=== PATIENT | female | born 1935 | race Hispanic/Latino ===

== ENCOUNTER 2017-02-09 11:14 | Outpatient (CLI) | payer MEDICARE ==
--- NOTE | 2017-02-09 12:04 | RAD ---
RIGHT SHOULDER 3 VIEWS: HISTORY: M25.511. COMPARISON: None. FINDINGS: There is mild narrowing of the subacromial space. Ossification of the superior and inferior acromioc lavicular ligaments with osseous hypertrophy. Small humeral osteophytes. Ribs are unremarkable. IMPRESSION: 1. Mild to moderate degenerative changes of the glenohumeral joint as well as moderate degenerative change of the acromioclavicular joint. 2. Mild narrowing of subacromial space can be seen with rotator cuff arthropathy. POS: [facility]
--- NOTE | 2017-02-09 12:05 | RAD ---
LEFT SHOULDER 3 VIEWS: HISTORY: Shoulder pain. FINDINGS: There are arthritic changes of the AC and glenohumeral joint space. The bones appear slightly demine ralized. The bones appear slightly demineralized. There is no fracture. IMPRESSION: Mild arthritic changes of the left shoulder. POS: [facility]
== END 2017-02-09 11:15 | disposition home or self-care (01) ==
LOC: SCSRAD 11:14
PROVIDERS: ATTEND Nurse Practitioner Family
DX: M25.511 Pain in right shoulder (principal); M25.512 Pain in left shoulder; M19.012 Primary osteoarthritis, left shoulder; M19.011 Primary osteoarthritis, right shoulder

== ENCOUNTER 2017-09-04 10:35 | Outpatient (CLI) | payer MEDICARE ==
--- NOTE | 2017-09-04 12:12 | RAD ---
THREE VIEWS OF THE LEFT ANKLE: COMPARISON: 08/10/16. HISTORY: Fall 10 days ago with left ankle pain. FINDINGS: Three views left ankle show no evidence of acute fracture or dislocation. Mild diffuse soft tissue s welling is seen. Degenerative changes are seen in the mid foot. IMPRESSION: Degenerative changes in the mid foot without acute osseous abnormality. POS: [facility]
== END 2017-09-04 10:36 | disposition home or self-care (01) ==
LOC: SCSRAD 10:35
PROVIDERS: ATTEND Nurse Practitioner Family
DX: M25.572 Pain in left ankle and joints of left foot (principal); M19.072 Primary osteoarthritis, left ankle and foot

== ENCOUNTER 2018-01-08 15:21 | Outpatient (CLI) | payer MEDICARE ==
--- NOTE | 2018-01-08 16:21 | RAD ---
CALCANEUS TWO VIEWS: History: Pain x 1 week. Comparison: None. FINDINGS: Mild hypertrophy of the calcaneus at the plantar aponeurosis insertion site. Trabeculation is maintai howard. No fracture. IMPRESSION: Mild hypertrophy of the calcaneus at the plantar aponeurosis insertion site. Correlate for plantar fa scitis. POS: [facility]
== END 2018-01-08 15:22 | disposition home or self-care (01) ==
LOC: BICRAD 15:21
PROVIDERS: ATTEND Podiatrist
DX: M79.671 Pain in right foot (principal); M72.2 Plantar fascial fibromatosis
CPT/HCPCS: 36415; 84550

== ENCOUNTER 2018-01-26 10:18 | Outpatient (CLI) | payer MEDICARE ==
--- NOTE | 2018-01-26 12:44 | BD ---
DEXA BONE DENSITY SCAN: DATE: 01/26/2018. COMPARISON: None. HISTORY: Postmenopausal female undergoing screening for osteoporosis. FINDINGS: Lumbar Spine: BMD (g/cm2) L1 1.204 T-Score: 1.9 L2 1.297 T-Score: 2.4 L3 1.361 T-Score: 2.5 L4 1.372 T-Score: 2.8 L1-L4 1.312 T-Score: 2.4 Femoral Neck: 0.838 T-Score: -0.1 Total Femur: 1.008 T-Score: 0.5 FRAX-WHO fracture risk assessment tool is not reported as T-scores are at or above -1.0. Impression: Normal bone mineral density exam. POS: C
== END 2018-01-26 10:19 | disposition home or self-care (01) ==
LOC: BICMAMMO 10:18
PROVIDERS: ATTEND Nurse Practitioner Family
DX: Z13.820 Encounter for screening for osteoporosis (principal); E55.9 Vitamin D deficiency, unspecified
CPT/HCPCS: 77080

== ENCOUNTER 2018-03-30 09:54 | Emergency (ER) | payer MEDICARE ==
--- NOTE | 2018-03-30 10:31 | CT ---
CT BRAIN: Date: 03/30/18 PROVIDED CLINICAL HISTORY: Headache. FINDINGS: No comparisons. The ventricular system appears normal in size and morphology. There is no evidence for intracranial h emorrhage or mass effect. Calcifications are noted involving the basal ganglia and cerebellum bilater ally, compatible with a systemic process. The extracranial soft tissues and osseous structures demons trate an unremarkable CT appearance. IMPRESSION: No evidence for intracranial hemorrhage or mass effect. POS: [facility]
== END 2018-03-30 10:35 | disposition home or self-care (01) ==
LOC: SCSER 09:54
DX: S00.03XA Contusion of scalp, initial encounter (principal); M19.90 Unspecified osteoarthritis, unspecified site; E11.9 Type 2 diabetes mellitus without complications; I10 Essential (primary) hypertension; Z79.84 Long term (current) use of oral hypoglycemic drugs; Z79.899 Other long term (current) drug therapy; W01.0XXA Fall on same level from slipping, tripping and stumbling without subsequent striking against object, initial encounter
CPT/HCPCS: 70450

== ENCOUNTER 2018-08-28 09:08 | Outpatient (CLI) | payer MEDICARE ==
--- NOTE | 2018-08-28 09:53 | RAD ---
EXAM: XR Cerv Sp Ap Lat STANDARD DATE: 08/28/2018 12:00 AM INDICATION: Neck pain COMPARISON: None. FINDING: There is reversal normal cervical lordosis. There is advanced multilevel facet and disc deg enerative disease. There is slight anterior translation of C7 on T1 which is likely degenerative. No acute fracture is evident. Lateral masses are symmetric. Lung apices are clear. Prevertebral soft tissues are normal appearing. IMPRESSION:Severe spondylosis of the cervical spine.
== END 2018-08-28 09:09 | disposition home or self-care (01) ==
LOC: BICRAD 09:08
PROVIDERS: ATTEND Nurse Practitioner Family
DX: M47.812 Spondylosis without myelopathy or radiculopathy, cervical region (principal); M54.2 Cervicalgia
CPT/HCPCS: 72040

== ENCOUNTER 2018-09-11 10:33 | Outpatient (CLI) | payer MEDICARE ==
--- NOTE | 2018-09-11 13:20 | MMO ---
Bilateral MAMMO Bilat Screen [facility]. CLINICAL HISTORY: Patient is 82 years old and is seen for screening. The patient has no family history of breast cancer. The patient has no personal history of cancer. VIEWS: The views performed were: bilateral craniocaudal with tomosynthesis and bilateral mediolateral oblique with tomosynthesis. FILMS COMPARED: The present examination has been compared to prior imaging studies performed at [facility] on 12/19/2014, 01/27/2015 and 10/11/2016. MAMMOGRAM FINDINGS: There are scattered fibroglandular densities. Finding 1: There are stable benign appearing calcifications seen in both breasts. Finding 2: The focal asymmetry in the outer left breast only seen on the CC view is less conspicuous on the current study compared to exam on 10/11/16 and is similar to study in 2014. There are no suspicious masses, suspicious calcifications, or new areas of architectural distortion. IMPRESSION: THERE IS NO MAMMOGRAPHIC EVIDENCE OF MALIGNANCY. A ROUTINE FOLLOW-UP MAMMOGRAM IN 1 YEAR IS RECOMMENDED. THE RESULTS OF THIS EXAM WERE SENT TO THE PATIENT. ACR BI-RADS Category 2 - Benign finding MAMMOGRAPHY NOTE: 1. A negative mammogram report should not delay a biopsy if a dominant of clinically suspicious mass is present. 2. Approximately 10% to 15% of breast cancers are not detected by mammography. 3. Adenosis and dense breasts may obscure an underlying neoplasm. Reported by: CORETTA ZULETA MD Electonically Signed: [id number]
== END 2018-09-11 10:34 | disposition home or self-care (01) ==
LOC: BICMAMMO 10:33
PROVIDERS: ATTEND Nurse Practitioner Family
DX: Z12.31 Encounter for screening mammogram for malignant neoplasm of breast (principal)
CPT/HCPCS: 77063; 77067

== ENCOUNTER 2018-11-11 14:38 | Inpatient (IN) | payer MEDICARE ==
[2018-11-11 15:06] LABS: #Monocytes 0.7 thou/uL (0.11-0.59); #Neutrophils 9.1 thou/uL (1.40-6.50); %Basophils 0.3 % (0.0-1.0); %Eosinophils 0.2 % (0.0-10.0); %Lymphocytes 9.2 % (21.0-51.0); %Monocytes 6.5 % (0.0-10.0); %Neutrophils 83.8 % (42.0-75.0); Hemoglobin 15.6 g/dL (12.0-16.0); Mean Corpuscular HGB CONC 34.5 g/dL (32.0-36.0); Mean Corpuscular Hemoglobin 32.6 pg (27.0-31.0); Mean Corpuscular Volume 94.5 fL (78.0-98.0); Mean Platelet Volume 7.6 fL (7.4-10.4); Platelet Count 287 thou/uL (130-400); RBC Distribution Width 12.1 % (11.5-14.5); White Blood Cell (WBC) Count 10.8 thou/uL (4.8-10.8)
--- NOTE | 2018-11-11 15:08 | RAD ---
EXAM: Portable chest PROVIDED CLINICAL HISTORY: Chest pain COMPARISON: 08/09/2016 FINDINGS: Cardiac and mediastinal silhouette are unchanged in appearance. No focal consolidation, pleural fluid or pneumothorax evident. IMPRESSION: No evidence for an acute cardiopulmonary process.
[2018-11-11 15:30] LABS: ALT (SGPT) 17 U/L (8-55); AST (SGOT) 43 U/L (5-34); Albumin 3.8 g/dL (3.4-4.8); Alkaline Phosphatase 62 U/L (40-150); Anion Gap 12 mmol/L (10-20); BUN (Urea Nitrogen) 20 mg/dL (9.8-20.1); Bilirubin, Total 0.9 mg/dL (0.2-1.2); CK (CPK) 1068 U/L (29-168); Calc. Creatinine Clearance 0 mL/min (70-130); Calcium 9.5 mg/dL (7.8-10.44); Carbon Dioxide 25 mmol/L (23-31); Chloride 105 mmol/L (98-107); Estimated GFR-MDRD 70; Globulin 2.3 g/dL (2.4-3.5); Glucose 123 mg/dL (83-110); Lipase 6 U/L (8-78); Potassium 3.5 mmol/L (3.5-5.1); Protein, Total 6.1 g/dL (6.0-8.3); Sodium 138 mmol/L (136-145)
[2018-11-11 15:57] LABS: CKMB 31.4 ng/mL (0-6.6)
[2018-11-11] MEDS ORDERED: Nitroglycerin 0.4 MG TAB (25 Tab Bottle) SL PRN (16:28)
[2018-11-11] MEDS ORDERED: HumaLOG 300 UNITS/3 ML VIAL SC PRN (16:30)
[2018-11-11] MEDS ORDERED: Dextrose 50% Abboject 50 ML SYRINGE SLOW IVP PRN (16:30)
[2018-11-11] MEDS ORDERED: Dextrose 5% in Water 1,000 ML IV PRN (16:30)
[2018-11-11] MEDS ORDERED: Enoxaparin Sodium 60 MG/0.6 ML SYRINGE ONE (17:12)
[2018-11-11 17:26] LABS: Troponin I 3.898 ng/mL (< 0.028)
--- NOTE | 2018-11-11 17:50 | HP ---
CHIEF COMPLAINT: Chest pain. HISTORY OF PRESENT ILLNESS: This patient is an 82-year-old female with a history of hypertension and diabetes, who presented to the emergency department. The patient reports that last night she was in her usual state of health when she was awakened by severe leg cramps. She tried to get out of bed, but felt too weak in her legs and felt lightheaded. She called a friend, who can help her get her back to bed. She slept the rest of the night. This morning, she continued to feel generally weak and lightheaded, so she had her friend take her to an urgent care clinic. While there, the patient developed pain in her chest, which she describes as a "hidden ball that was tiny" in her chest, then it subsequently increased, became more severe until it became 7/10 chest pain. She had no radiation. She had no nausea, vomiting, or shortness of breath. An ambulance was called, and the patient was subsequently given aspirin. She reports that her pain completely resolved spontaneously after that and now it has gone. She does report that she does continue to have some discomfort and weakness in her legs. REVIEW OF SYSTEMS: Notable for some osteoarthritis or some arthritic-type pains. She also recently had bouts of diarrhea, which apparently was related to some generic metformin, but otherwise the remainder of her review of systems were accomplished and all pertinent positives and negatives noted in history of present illness. PAST MEDICAL HISTORY: Notable for hypertension, diabetes type 2, chronic foot pain, stress incontinence, cervical spinal stenosis, nasal allergies, hypertension, rheumatoid arthritis, and diverticulitis. PAST SURGICAL HISTORY: Appendectomy, adhesiolysis secondary to bowel obstruction and fibroid surgery, but not hysterectomy. SOCIAL HISTORY: The patient is a nonsmoker, nondrinker, and nondrug user. She is a . She is full code. Her surrogate decision maker would be her daughter, Nikki Christensen. In her absence, it would be her friend, Tammie. ALLERGIES: SULFA/BACTRIM. THE PATIENT ALSO REPORTS THAT SHE IS ALLERGIC TO FISH, CHICKEN, AND RED MEAT, ALL OF WHICH CAUSE HER DIARRHEA. CURRENT MEDICATIONS: 1. Lisinopril 10 mg daily. 2. Metformin 500 mg daily. PHYSICAL EXAMINATION: VITAL SIGNS: Blood pressure 118/70, pulse 84, respirations 18, temperature 97.9 , and O2 saturations 96% on room air. GENERAL APPEARANCE: Age-appropriate female, in no distress. She is awake, alert, oriented, pleasant, cooperative. HEENT: PERRL. No OP lesions. NECK: Supple and symmetric without lymphadenopathy or JVD. HEART: Regular rate and rhythm without murmurs, gallops, or rubs. LUNGS: Clear to auscultation bilaterally with good chest wall expansion or exchange. ABDOMEN: Soft, nontender, and nondistended. Positive bowel sounds. No masses. No organomegaly. EXTREMITIES: No cyanosis, clubbing, or edema. She does have very slight tenderness in the musculature of the lower extremities, but nothing significant. PSYCH: Normal affect and behavior. NEURO: The patient has normal strength peripherally in all extremities. LABORATORY DATA: White count 10.8, hemoglobin 15.6, and platelets 287. Sodium 138, potassium 3.5, BUN 20, creatinine 0.78, glucose 123, calcium 9.5, AST 43, and ALT 17. CK 1068, CK-MB 31.4, troponin 3.734. BNP 864. Lipase is 6. Chest x-ray is normal. EKG shows sinus rhythm at 77 beats per minute with an incomplete right bundle-branch block, a left anterior fascicular block, and a possible LVH. IMPRESSION AND PLAN: 1. Unq-CD-[id number] myocardial infarction. The patient had experienced chest pain this afternoon while at an urgent care being seen for leg pain and weakness as well as some dizziness. The patient's symptoms spontaneously resolved, and she is currently pain free. She has received aspirin en route in the ambulance. In the emergency department, she has received Lovenox 1 mg/kg subcu and 500 mL of fluid. We will continue to keep her n.p.o. after midnight. I have discussed case with Dr. Sloan. The patient does not have a storage specialist that she follows with typically. She appears to be stable at the moment. We will continue with p.r.n. nitroglycerin. The patient has indicated she is a bit hesitant to do any procedures until her daughter is able to get here from [place]. 2. Mild rhabdomyolysis probably due to the leg cramps. We will keep her on some low level of IV fluids. 3. Diabetes mellitus. We will hold the metformin in light of the fact she may need a heart catheterization. We will keep her on sliding scale insulin. 4. Hypertension. Continue with the lisinopril. 5. We will go ahead and start statin. Job ID: [id number] MTDD
[2018-11-11] MEDS ORDERED: Aspirin 325 MG TAB ONE (18:25)
[2018-11-11] MEDS ORDERED: Ondansetron ODT 4 MG TAB SL PRN (19:15)
[2018-11-11] MEDS ORDERED: Ondansetron PF 4 MG/2 ML Vial IVP PRN (19:15)
[2018-11-11] MEDS ORDERED: Sodium Chloride 0.9% 1,000 ML IV SCH (19:15)
[2018-11-11] MEDS ORDERED: traMADol HCl 50 MG TAB PO PRN (19:26)
[2018-11-11] MEDS ORDERED: Morphine 2 MG/ML SYRINGE SLOW IVP PRN (19:26)
[2018-11-11 20:17] LABS: Troponin I 4.291 ng/mL (< 0.028)
[2018-11-11 21:21] VITALS: BMI 23.1
[2018-11-11] MEDS ORDERED: Sodium Chloride 0.9% 250 ML IV SCH (21:45)
--- NOTE | 2018-11-11 22:39 | CON ---
DATE OF CONSULTATION: 11/11/2018 INDICATION FOR CONSULTATION: This is an 82-year-old female who was seen earlier due to leg cramps at an outside facility. In evaluation and workup, she had cardiac enzymes obtained and these were abnormal and she was sent here for further evaluation with the thought that perhaps she had, had a silent myocardial infarction. She does have a history of diabetes, however, she has severe leg cramping and last night she had severe leg cramps, she had to call her neighbor to massage her legs and this morning her legs are still very painful after the severe cramping. She presented to the facility due to the leg cramps and not due to any complaints of shortness of breath or chest pain. At this time, I noted that her cardiac enzymes, her troponin I is slightly elevated, however, this is somewhat out of proportion to 1 would expect due to the significant elevation of the her CKs, which were significant elevated. She was not lying on the floor anything like this, but with the severe leg cramping, 1 could certainly expect that her CPK would be elevated and this would also indicate some mild elevation of the cardiac enzymes, especially since the patient does not have any other complaints and had a stress test last year that did not show evidence of ischemia. She does have an incomplete right bundle-branch block, which is not new. She has had this for at least 2 years. Her CK was 1068. The MB was 31 and her troponin I was 3.7, increased up to 3.89 and the last 1 at 0742 hours this evening was 4.29. She may have some degree of demand ischemia due to the severity of the pain, but at this time we will continue to monitor her. We will keep her n.p.o. just in case the enzymes continue to increase, then she would need to undergo a cardiac catheterization. Otherwise, she has remained relatively stable. She has not had any other significant cardiac complaints and as noted above, she does have an incomplete right bundle-branch block, which is not new, but she is diabetic and may have some degree of ischemia. PAST MEDICAL HISTORY: SOCIAL HISTORY: FAMILY HISTORY: ALLERGIES: MEDICATIONS: REVIEW OF SYSTEMS: Please refer to the notes dictated by the nurse practitioner, Aga Grajeda. PHYSICAL EXAMINATION: GENERAL: Reveals a well-developed, well-nourished female, who is in no acute distress at this time. She has no significant complaints of pain. VITAL SIGNS: Stable. HEENT: Unremarkable. NECK: Carotid pulses are present. There were no bruits. CHEST: Clear to auscultation. There are no rales, rhonchi, or wheezing. CARDIOVASCULAR: Reveals a regular rate and rhythm. Normal S1, S2. There is no S3 or S4. There were no significant murmurs, heaves, thrills, bruits, or rubs. ABDOMEN: Soft, flat, nontender. Positive bowel sounds are present. EXTREMITIES: Showed no clubbing or cyanosis. She does have decreased pedal pulses, but there is no significant cramping noted at this time. Her feet are somewhat cool, but otherwise there were no significant abnormalities. NEUROLOGICAL: She appears to be intact. SKIN: Otherwise is warm and dry. We will continue to monitor the patient very carefully tonight and further care of the patient will be dictated by Dr. Greene when he visits with the patient tomorrow. I will keep her n.p.o. tonight for possible catheterization tomorrow or even possible stress testing if the enzymes trend downwards, otherwise vital signs are stable and the patient is very comfortable at this time. Job ID: [id number]
[2018-11-11] MEDS: Atorvastatin Calcium 40 MG TAB PO SCH (22:50)
[2018-11-11] MEDS: Sodium Chloride 0.9% 1,000 ML IV SCH (22:59)
[2018-11-11 23:29] LABS: Troponin I 4.454 ng/mL (< 0.028)
[2018-11-12] MEDS ORDERED: Sodium Chloride 0.9% 500 ML IV SCH (01:15)
[2018-11-12] MEDS: Sodium Chloride 0.9% 1,000 ML IV SCH ×2 (05:01→19:12)
[2018-11-12 05:41] LABS: Cardiac Risk 3.2 (Less than 4.5)
[2018-11-12 06:41] LABS: Hemoglobin 13.4 g/dL (12.0-16.0)
--- NOTE | 2018-11-12 08:56 | PDOC.CPN ---
- Subjective Date: 11/12/18 Time: 08:55 Interval history: Pts BP improving Pt transferred last pm for persistent hypotension FLuids given and overall better - Objective Allergies/Adverse Reactions: Allergies Allergy/AdvReac Type Severity Reaction Status Date / Time chicken derived Allergy Diarrhea Verified 08/09/16 20:02 Sulfa (Sulfonamide Allergy Verified 08/09/16 20:02 Antibiotics) Visit Medications: Current Medications Aspirin (Ecotrin) 325 mg PO DAILY [facility] Atorvastatin Calcium (Lipitor) 40 mg PO [facility] Last Admin: 11/11/18 22:50 Dose: 40 mg Dextrose/Water (Dextrose 50%) 25 gm SLOW IVP PRN PRN PRN Reason: Hypoglycemia Glucagon (Glucagon) 1 mg IM PRN PRN PRN Reason: Hypoglycemia Dextrose/Water (D5w) 1,000 mls @ 0 mls/hr IV .Q0M PRN PRN Reason: Hypoglycemia Sodium Chloride (Normal Saline 0.9%) 1,000 mls @ 100 mls/hr IV .Q10H [facility] Last Admin: 11/12/18 05:01 Dose: 1,000 mls Insulin Human Lispro (Humalog) 0 units SC .MILD SLIDING SCALE PRN PRN Reason: Mild Correctional Scale Lisinopril (Zestril) 10 mg PO DAILY [facility] Last Admin: 11/12/18 08:40 Dose: Not Given Morphine Sulfate (Morphine) 2 mg SLOW IVP Q4H PRN PRN Reason: Moderate to Severe Pain (6-10) Nitroglycerin (Nitrostat) 0.4 mg SL Q5MIN PRN PRN Reason: Chest Pain Sodium Chloride (Flush - Normal Saline) 10 ml IVF PRN PRN PRN Reason: Saline Flush Tramadol HCl (Ultram) 50 mg PO Q6H PRN PRN Reason: Mild-Moderate Pain (1-5) Vital Signs & Weight: Vital Signs Temp Pulse Resp BP BP Pulse Ox 11/12/18 08:00 98.2 F 11/12/18 05:00 98.4 F 11/12/18 04:03 99 11/12/18 03:30 97.5 F L 68 16 81/46 L 94 L 11/11/18 23:44 103/57 L 11/11/18 23:18 64 16 86/53 L 11/11/18 21:34 97.5 F L 64 18 84/52 L 95 Weight 138 lb 9.6 oz - Physical Exam General: alert & oriented x3 HEENT: mucus membranes moist Neck: supple neck Cardiac: regular rate and rhythm Lungs: clear to auscultation Neuro: grossly intact Abdomen: active bowel sounds, soft Skin: clear Musculoskeletal: no pain - Labs Result Diagrams: 11/12/18 04:10 11/11/18 14:59 Troponin/CKMB CK-MB (CK-2) 31.4 ng/mL (0-6.6) H* 11/11/18 15:00 Troponin I 4.454 ng/mL (< 0.028) H* 11/11/18 22:51 - Problem (1) Hypotension Assessment and Plan: resolved after IV fluids (2) Type 2 acute myocardial infarction Code(s): I21.A1 - MYOCARDIAL INFARCTION TYPE 2 Assessment and Plan: unsure if type 1 vs type 2 Pt with CP noted during initial event of leg cramps Pt no previous cardiac history Discussed meds vs angio Pt not interested in cath and prefers meds I did state she may be at increased risk of ME in next 14 days with med treatment (if in fact type 1MI and not type 2) Pt at this point prefers meds She will speak to daughter who is on her way from [place]
[2018-11-12] MEDS ORDERED: Aspirin 325 mg Enteric Coated Tablet PO SCH (09:00)
[2018-11-12] MEDS ORDERED: Lisinopril 10 MG TAB PO SCH (09:00)
[2018-11-12 09:15] LABS: Critical Call Chem Troponin I RESULT DECREASING; Troponin I 2.568 ng/mL (< 0.028)
--- NOTE | 2018-11-12 09:28 | CON ---
DATE OF CONSULTATION: PRIMARY CARE PHYSICIAN: Dr. Reed Patton. PRIMARY HELICOPTER PILOT: Dr. Greene. The patient's primary doctor here is the [facility] doctor. REASON FOR CARDIOLOGY CONSULT: Elevated troponin. HISTORY OF PRESENT ILLNESS: Ms. Mcdonough is an 82-year-old female with a significant history of hypertension, type 2 diabetes, and chronic bilateral lower extremity pain. The patient had seen Dr. Greene for leg pain. She had done vein study and peripheral artery study, which had been negative but she continued having the bilateral lower extremity pain. She was told she should walk. She walks 50 minutes a day daily without any chest pain, shortness of breath, dizziness, lightheadedness, or any cardiac complaints but last night, she started having really severe cramping like muscle pain to the bilateral lower extremities and she could not even walk well, so she called her neighbor and her neighbor brought the patient to the emergency department for further evaluation and treatment. She denies chest pain, heaviness, tightness, dizziness, lightheadedness, or any other cardiac complaints during the episode. The patient's troponin was found to have elevated to 3.734, 3.898, and I think more than 4 and also the patient's CK-MB is at 31.4 and creatine kinase at 1068. The patient's 12-lead EKG has not changed with no ST-segment change or T-wave inversion. The patient had a stress test done in July 2016 with no reversible ischemia with EF 79%. She has not had echocardiogram done. PAST MEDICAL HISTORY: Hypertension; diabetes, type 2; chronic bilateral leg pain; stress incontinence; and rheumatoid arthritis to the bilateral feet and neck. PAST SURGICAL HISTORY: Appendectomy, adhesiolysis secondary to bowel obstruction and fibroid surgery, bilateral cataract surgery, and colonoscopy couple weeks ago. FAMILY HISTORY: . SOCIAL HISTORY: She is a . She lives by herself, but she has a good neighbor support. She has one daughter, who is living well. She walks 50 minutes every day without any cardiac complaints. She denies tobacco, EtOH, or illicit drug abuse. She drinks half cup of coffee every day. ALLERGIES: SHE IS ALLERGIC TO SULFA AND BACTRIM, WHICH CAUSE A RASH. SHE IS ALLERGIC TO FISH, MEAT, AND CHICKEN, WHICH CAUSE DIARRHEA AND ALSO SHE IS ALLERGIC TO GENERIC METFORMIN, WHICH CAUSES DIARRHEA, BUT SHE DOES NOT HAVE A DIARRHEA WITH BRAND NAME. REVIEW OF SYSTEMS: 12-point review of systems is negative unless otherwise mentioned in the HPI. HOME MEDICATIONS: She is on, 1. Lisinopril 20 mg once a day. 2. Metformin 500 once a day. 3. Aspirin 81 mg as needed for headache and muscle aching. 4. Naproxen 500 mg twice a day as needed. 5. Multivitamin once a day. 6. Calcium avfb-fya-prwleco once a day. 7. Imodium 4 as needed for diarrhea. PHYSICAL EXAMINATION: VITAL SIGNS: Blood pressure 119/70, pulse is 84 and sinus rhythm, respiratory rate 18, O2 saturation 96% on room air, and temperature 97.9. GENERAL: The patient is alert and oriented x4, not in acute distress. HEAD: Normocephalic and atraumatic. EYES: Extraocular muscle movement intact. ENT AND MOUTH: Oral and nasal mucosa moist without lesion. NECK: Supple. Normal range of motion. No JVD. RESPIRATORY: Clear to auscultate bilaterally. No wheezing, rales, or rhonchi noted. CARDIOVASCULAR: Regular rate and rhythm. Normal S1 and S2. There is no S3 or S4. No significant murmur, hives, or thrill noted. 2+ in bilateral upper and lower extremities. There are varicose veins in bilateral lower extremities. No edema in the lower extremities. Carotid pulses are present without bruits noted. ABDOMEN: Soft, nontender. No mass to palpate. Bowel sounds are present. MUSCULOSKELETAL: The patient is able to move all extremities without any difficulty. SKIN: Warm and dry. No lesion, rash, or erythema noted. NEUROLOGIC: The patient is alert and oriented x4. Nonfocal. PSYCHIATRIC: Normal affect and behavior. LABORATORY DATA: WBC 10.8, hemoglobin 15.6, hematocrit 45.4, and platelets 287. Sodium 138, potassium 3.5, BUN 20, creatinine 0.78, calcium 9.5, glucose 123, AST 43, and ALT of 17. Creatine kinase 1068, CK-MB 31.4. Troponin 3.734, 3.898, and the third one is more than 4. BNP is 863.9. Hemoglobin A1c was 5.6. Uric acid is 5.0 and TSH is 1.3283, free T4 is 1.07, and free T3 is 2.43. Cholesterol; total cholesterol is 189, triglycerides 80, HDL 55, and LDL 118. IMAGING DATA: Chest x-ray shows no evidence of acute cardiopulmonary process. ASSESSMENT AND PLAN: 1. Elevated troponin, possible type 2 myocardial infarction or possible from severe muscle cramping in bilateral lower extremities since the patient's not only the troponin but also creatine kinase and CK-MBs are elevated. The patient had a stress test done in 2017 with no reversible ischemia with EF 79%. We would like to defer to Dr. Greene to decide whether the patient needs a catheterization or stress test. We would like to keep the patient n.p.o. after midnight tonight for in case. At this moment, the patient is asymptomatic. The patient's 12-lead EKG at the ER shows sinus rhythm with incomplete right bundle branch block, which has not changed since [address]-segment change or T-wave inversion. We would like to continue to monitor on the telemetry at this moment. 2. Hypertension. The patient's blood pressure is stable at this moment with current medication. 3. Diabetes, type 2. She is on metformin 500 mg once a day. 4. Muscle cramping. She is on the tramadol 50 mg every 6 hours as needed, also might help for her muscle cramping. 5. Elevated BNP. The patient's BNP is more than 800. We would like to go ahead to order echocardiogram for the BNP level. Thank you very much for allowing the Cardiology Service to participate in the care of this patient. We will follow along the patient's care team and make further recommendation as appropriate. From tomorrow, Dr. Greene is going to be following with this patient. Job ID: [id number]
--- NOTE | 2018-11-12 10:32 | CON ---
DATE OF CONSULTATION: CONSULTING PHYSICIAN: [facility]. REASON FOR CONSULTATION: ICU placement. HISTORY OF PRESENT ILLNESS: Ms. Mcdonough is a pleasant 82-year-old who came to the hospital, complaining of chest pain and bilateral lower extremity leg cramps. Symptoms started yesterday. Chest pain was described as 7/10. She was initially placed on telemetry floor for rule out [place] workup. She developed some hypotension last night, was transferred to the ICU, where she has responded to fluid challenge. PAST MEDICAL HISTORY: 1. Hypertension. 2. Diabetes mellitus. 3. Incontinence. 4. Cervical spinal stenosis. 5. Nasal allergy. 6. Hypertension. 7. Rheumatoid arthritis. 8. Diverticulitis. PAST SURGICAL HISTORY: 1. Appendectomy. 2. Abdominal adhesion lysis. SOCIAL HISTORY: Nonsmoker. Does not consume alcohol. Does not use illicit drugs. ALLERGIES: BACTRIM, FISH, CHICKEN, RED MEAT. MEDICATIONS: Prior to admission; 1. Lisinopril. 2. Metformin. REVIEW OF SYSTEMS: Twelve-point review of systems is otherwise negative except for that which is mentioned above. PHYSICAL EXAMINATION: VITAL SIGNS: Temperature 98.2, pulse 70, blood pressure 114/59, and O2 saturation 94% room air. GENERAL: She is awake, alert, and in no obvious distress. HEENT: Pupils react. Sclerae are anicteric. Oropharynx clear. NECK: No adenopathy or JVD. LUNGS: Clear. CARDIAC: S1 and S2. Regular. ABDOMEN: Soft and nontender. EXTREMITIES: No clubbing or cyanosis. She has tenderness along the dorsum of the right calf, but no swelling. No redness. She also has some swelling and redness on the triceps region of her right arm. LABORATORY DATA: Sodium 138, potassium 3.5, chloride 105, CO2 of 25, BUN 20, creatinine 0.7, and glucose 123. CPK 1068. Troponin 4.2. BNP 463. White blood cell count 10.8, hematocrit 45.4, and platelet count 287. IMAGING DATA: Chest x-ray shows no mass, effusion, or infiltrate. ASSESSMENT: 1. [id number] elevation myocardial infarction. 2. Transient hypotension. 3. Rhabdomyolysis - seems to be related to leg cramping. 4. Leg cramping of unknown origin. 5. Diabetes mellitus. PLAN: 1. I will go ahead and get Doppler ultrasound of bilateral lower extremities just to make sure that we are not dealing with any type of DVT phenomena. 2. Given the patient's atypical presentation, if she proceeds with further cardiac workup, which is negative, then I would suggest CT pulmonary angiogram. 3. Gentle hydration for the rhabdomyolysis. 4. Might reconsider starting the atorvastatin given her severe myofascial pain at this time. Thank you for the referral. I will follow with you. Job ID: [id number]
--- NOTE | 2018-11-12 10:33 | ULT ---
EXAM: Bilateral lower extremity venous Doppler evaluation PROVIDED CLINICAL HISTORY: Bilateral lower extremity cramping and soreness TECHNIQUE: Grayscale, color doppler and spectral doppler images were obtained of the common femoral , femoral, profunda femoral, popliteal and posterior tibial veins of both lower extremities. FINDINGS: There is normal compression, flow and augmentation seen with the deep venous structures within both l ower extremities. IMPRESSION: No sonographic evidence for lower extremity deep venous thrombosis.
--- NOTE | 2018-11-12 16:06 | PDOC.HOSPP ---
- Subjective Encounter Date: 11/12/18 Encounter Time: 16:05 Subjective: Ms. Mcdonough was seen today in follow-up of acute coronary syndrome. she says she feels fine now. She notes just a twinge of pain yesterday, but most of her symptoms was due to cramping in her legs. - Objective Vital Signs & Weight: Vital Signs (12 hours) Temp Pulse Ox 11/12/18 12:00 98.1 F 11/12/18 08:00 98.2 F 98 11/12/18 05:00 98.4 F Weight Weight 138 lb 9.6 oz Most Recent Monitor Data Heart Rate from ECG 60 NIBP 113/52 NIBP BP-Mean 72 Respiration from ECG 17 SpO2 97 I&O: 11/11/18 11/12/18 11/13/18 06:59 06:59 06:59 Intake Total 2438.2 330 Output Total 880 Balance 2438.2 -550 Result Diagrams: 11/12/18 04:10 11/11/18 14:59 Additional Labs: Accuchecks 11/12/18 11/12/18 11/11/18 14:06 06:02 20:51 POC Glucose 97 81 120 H Hospitalist ROS - Medication Medications: Active Medications Generic Name Dose Route Start Last Admin Trade Name Freq PRN Reason Stop Dose Admin Aspirin 325 mg 11/12/18 09:00 11/12/18 09:04 Ecotrin PO 325 mg DAILY [facility]LIN Administration Atorvastatin Calcium 40 mg 11/11/18 21:00 11/11/18 22:50 Lipitor PO 40 mg HS MERLIN Administration Sodium Chloride 1,000 mls @ 100 mls/hr 11/11/18 22:00 11/12/18 05:01 Normal Saline 0.9% IV 1,000 mls .Q10H [facility] Administration Lisinopril 10 mg 11/12/18 09:00 11/12/18 08:40 Zestril PO Not Given DAILY [facility]LIN - Exam Eye: PERRL, anicteric sclera Heart: RRR, no murmur, no gallops, no rubs, normal peripheral pulses Respiratory: CTAB, no wheezes, no rales, no ronchi, normal chest expansion, no tachypnea, normal percussion Gastrointestinal: soft, non-tender, non-distended, normal bowel sounds, no palpable masses, no hepatomegaly, no splenomegaly Extremities: no cyanosis, no clubbing, no edema Neurological: no focal deficits, no new deficit Hosp A/P (1) NSTEMI (non-ST elevated myocardial infarction) Code(s): I21.4 - NON-ST ELEVATION (NSTEMI) MYOCARDIAL INFARCTION Status: Acute (2) Diabetes mellitus type 2 in obese Code(s): E11.69 - TYPE 2 DIABETES MELLITUS WITH OTHER SPECIFIED COMPLICATION; E66.9 - OBESITY, UNSPECIFIED Status: Chronic (3) Hypertension Code(s): I10 - ESSENTIAL (PRIMARY) HYPERTENSION Status: Chronic - Plan * NSTEMI- continue medical management-including aspirin, statin, nitrates. Her heart rate is in the 60's already * HTN-blood pressure is stable * DM- blood glucose is stable * Ms. Mcdonough tells me she does not want any further cardiac work-up, and wishes to be placed on medical therapy only * She likely can be moved out of the CCU.
[2018-11-12] MEDS: Atorvastatin Calcium 40 MG TAB PO SCH (20:20)
--- NOTE | 2018-11-13 06:26 | PDOC.CPN ---
- Subjective Date: 11/13/18 Time: 15:31 Interval history: doing much better. BP better (lower though after restarting (ACEI) - Objective Allergies/Adverse Reactions: Allergies Allergy/AdvReac Type Severity Reaction Status Date / Time chicken derived Allergy Diarrhea Verified 08/09/16 20:02 Sulfa (Sulfonamide Allergy Verified 08/09/16 20:02 Antibiotics) Visit Medications: Current Medications Aspirin (Ecotrin) 325 mg PO DAILY [facility] Last Admin: 11/12/18 09:04 Dose: 325 mg Atorvastatin Calcium (Lipitor) 40 mg PO HS [facility] Last Admin: 11/12/18 20:20 Dose: 40 mg Dextrose/Water (Dextrose 50%) 25 gm SLOW IVP PRN PRN PRN Reason: Hypoglycemia Glucagon (Glucagon) 1 mg IM PRN PRN PRN Reason: Hypoglycemia Dextrose/Water (D5w) 1,000 mls @ 0 mls/hr IV .Q0M PRN PRN Reason: Hypoglycemia Sodium Chloride (Normal Saline 0.9%) 1,000 mls @ 100 mls/hr IV .Q10H [facility] Last Admin: 11/12/18 19:12 Dose: 1,000 mls Insulin Human Lispro (Humalog) 0 units SC .MILD SLIDING SCALE PRN PRN Reason: Mild Correctional Scale Lisinopril (Zestril) 10 mg PO DAILY [facility] Last Admin: 11/12/18 08:40 Dose: Not Given Morphine Sulfate (Morphine) 2 mg SLOW IVP Q4H PRN PRN Reason: Moderate to Severe Pain (6-10) Nitroglycerin (Nitrostat) 0.4 mg SL Q5MIN PRN PRN Reason: Chest Pain Sodium Chloride (Flush - Normal Saline) 10 ml IVF PRN PRN PRN Reason: Saline Flush Tramadol HCl (Ultram) 50 mg PO Q6H PRN PRN Reason: Mild-Moderate Pain (1-5) Vital Signs & Weight: Vital Signs Temp Pulse Ox 11/13/18 00:00 98.3 F 11/12/18 20:00 97.9 F 11/12/18 19:27 96 Weight 138 lb 9.6 oz - Physical Exam General: alert & oriented x3 HEENT: mucus membranes moist Neck: supple neck Cardiac: no murmur, regular rate Lungs: normal exam Neuro: grossly intact Abdomen: unremarkable - Labs Result Diagrams: 11/12/18 04:10 11/11/18 14:59 Troponin/CKMB CK-MB (CK-2) 31.4 ng/mL (0-6.6) H* 11/11/18 15:00 Troponin I 2.568 ng/mL (< 0.028) H* 11/12/18 05:06 - Assessment/Plan Assessment/Plan: Type II NM Hypotension Pt doing very well Insistent on not proceeding with any further testing Understands the risk of recurrent NM if type I NM (but likley type II) Recommend ASA, statin, BB fu with me in 1-2 weeks
[2018-11-13] MEDS: Sodium Chloride 0.9% 1,000 ML IV SCH (06:45)
[2018-11-13] MEDS ORDERED: Carvedilol 3.125 MG TAB PO SCH (08:00)
[2018-11-13] MEDS ORDERED: Naproxen 500 MG TAB PO PRN (08:08)
[2018-11-13] MEDS ORDERED: Aspirin 325 mg Enteric Coated Tablet PO SCH (09:00)
[2018-11-13] MEDS ORDERED: Lisinopril 10 MG TAB PO SCH (09:00)
--- NOTE | 2018-11-13 09:39 | PRG ---
DATE OF SERVICE: 11/13/2018 SUBJECTIVE: She is complaining of left knee pain, otherwise doing well. Not having any shortness of breath or chest pain. OBJECTIVE: VITAL SIGNS: On examination, temperature is 98.0, pulse 64, blood pressure 135/67, and O2 saturation 94% on room air. HEENT: Unremarkable. NECK: No adenopathy, JVD, or bruits. LUNGS: Clear. CARDIAC: S1 and S2 regular with 2/6 systolic murmur. ABDOMEN: Soft. EXTREMITIES: No edema. LABORATORY DATA: I do not see any new lab tests that were done today. The ultrasound of the lower extremities was negative. ASSESSMENT: 1. Rhabdomyolysis. 2. Myocardial infarction. 3. Transient hypotension, which is resolved. 4. Diabetes mellitus. PLAN: Transfer out to telemetry. No further pulmonary issues at this time. We will sign off. Please recall if further assistance needed. Job ID: [id number]
[2018-11-13 10:36] VITALS: TEMP 98.4
[2018-11-13 12:04] VITALS: BP 138/73
--- NOTE | 2018-11-13 18:02 | PDOC.HOSPP ---
- Subjective Encounter Date: 11/13/18 Encounter Time: 09:00 Subjective: Ms. Mcdonough was seen today in follow-up of NSTEMI. She does not have any complaints. - Objective Vital Signs & Weight: Vital Signs (12 hours) Temp Pulse Pulse BP BP BP Pulse Ox 11/13/18 10:33 140/69 11/13/18 09:50 84 79 138/73 140/69 11/13/18 08:00 98.4 F 98 Pulse Ox Pulse Ox 11/13/18 10:33 11/13/18 09:50 99 99 11/13/18 08:00 Weight Weight 138 lb 9.6 oz Most Recent Monitor Data Heart Rate from ECG 72 NIBP 109/50 NIBP BP-Mean 69 Respiration from ECG 19 SpO2 94 I&O: 11/12/18 11/13/18 11/14/18 06:59 06:59 06:59 Intake Total 2438.2 2941 820 Output Total 2155 300 Balance 2438.2 786 520 Result Diagrams: 11/12/18 04:10 11/11/18 14:59 Additional Labs: Accuchecks 11/13/18 11/13/18 11/12/18 12:02 06:45 21:03 POC Glucose 101 87 93 - Exam Heart: RRR, no murmur, no gallops, no rubs, normal peripheral pulses Respiratory: CTAB, no wheezes, no rales, no ronchi, normal chest expansion, no tachypnea, normal percussion Gastrointestinal: soft, non-tender, non-distended, normal bowel sounds Extremities: no cyanosis, no edema Hosp A/P (1) NSTEMI (non-ST elevated myocardial infarction) Code(s): I21.4 - NON-ST ELEVATION (NSTEMI) MYOCARDIAL INFARCTION Status: Acute (2) Diabetes mellitus type 2 in obese Code(s): E11.69 - TYPE 2 DIABETES MELLITUS WITH OTHER SPECIFIED COMPLICATION; E66.9 - OBESITY, UNSPECIFIED Status: Chronic (3) Hypertension Code(s): I10 - ESSENTIAL (PRIMARY) HYPERTENSION Status: Chronic - Plan * NSTEMI- continue medical treatment. * She does not want any additional evaluation * Stable for discharge home.
--- NOTE | 2018-11-14 00:10 | DIS ---
DATE OF ADMISSION: 11/11/2018 DATE OF DISCHARGE: 11/13/2018 PRIMARY CARE PHYSICIAN: Dr. Lizandro Carmichael. DISCHARGE DISPOSITION: Home. PRIMARY DISCHARGE DIAGNOSES: 1. Non ST-segment elevated myocardial infarction. 2. Hypertension. 3. Diabetes mellitus type 2. DISCHARGE MEDICATIONS: Include: 1. Aspirin 325 mg daily. 2. Lipitor 40 mg at bedtime. 3. Metformin 500 mg daily. Please note that the patient refused to take carvedilol or lisinopril as she was afraid that it would make her blood pressure too low. Therefore, she is not discharged on these medications due to patient refusal. PROCEDURES DONE DURING THE ADMISSION: The patient had an echocardiogram demonstrating an EF of 45% to 50%. There was akinetic motion of the inferior wall of the left ventricle and [id number] mitral regurgitation. ALLERGIES: TO CHICKEN DERIVATIVES AND OTHER MEATS ACCORDING TO THE PATIENT, WELL SULFA. THE MEATS CAUSED HER TO HAVE DIARRHEA. HOSPITAL COURSE: Ms. Mcdonough is a pleasant 82-year-old female, who was admitted to the hospital due to cramping in her lower extremities. She was found to have an elevated CK, but then also noticed to have elevation in her troponin. She was admitted to the ICU due to some hypotension. Cardiology was consulted. An echocardiogram was done with the above-mentioned findings. The plan was to proceed with cardiac catheterization. However, the patient refused and stated that she would prefer to just be treated medically. The plan was to add a beta kerri to the lisinopril that she had already been on. However, she refused both and was feeling better and was able to be discharged home. She is to follow up with Dr. Greene in 1 to 2 weeks. She is also to follow up with her primary care physician. Job ID: [id number]
== END 2018-11-13 15:33 | disposition home or self-care (01) | DRG 281 ==
LOC: ERS 14:38 → 2NO 19:06 → CCU 11-12 04:27 → UNDODISIN 11-12 18:52
PROVIDERS: ADMIT Internal Medicine; ATTEND Internal Medicine
DX: I21.A1 Myocardial infarction type 2 (principal); M62.82 Rhabdomyolysis; I10 Essential (primary) hypertension; M48.02 Spinal stenosis, cervical region; I45.10 Unspecified right bundle-branch block; M06.89 Other specified rheumatoid arthritis, multiple sites; N39.3 Stress incontinence (female) (male); E11.69 Type 2 diabetes mellitus with other specified complication; E66.9 Obesity, unspecified; Z68.23 Body mass index [BMI] 23.0-23.9, adult; Z79.899 Other long term (current) drug therapy; Z88.2 Allergy status to sulfonamides; Z88.1 Allergy status to other antibiotic agents; Z91.018 Allergy to other foods; Z79.84 Long term (current) use of oral hypoglycemic drugs; Z79.82 Long term (current) use of aspirin; Z53.29 Procedure and treatment not carried out because of patient's decision for other reasons; I95.9 Hypotension, unspecified; G89.29 Other chronic pain; I34.0 Nonrheumatic mitral (valve) insufficiency
CPT/HCPCS: 36415; 36416; 71045; 80053; 80061; 82550; 82553; 83690; 83880; 84484; 85014; 85018; 85025; 93005; 93306; 93798; 93970; J1650

== ENCOUNTER 2019-05-20 20:05 | Emergency (ER) | payer MEDICARE ==
[2019-05-20 20:53] LABS: #Lymphocytes 1.5 thou/uL (1.20-3.40); #Monocytes 0.9 thou/uL (0.11-0.59); #Neutrophils 11.9 thou/uL (1.40-6.50); %Basophils 0.3 % (0.0-1.0); %Eosinophils 0.3 % (0.0-10.0); %Lymphocytes 10.3 % (21.0-51.0); %Monocytes 6.4 % (0.0-10.0); %Neutrophils 82.7 % (42.0-75.0); Hemoglobin 17.1 g/dL (12.0-16.0); Mean Corpuscular HGB CONC 33.5 g/dL (32.0-36.0); Mean Corpuscular Volume 95.5 fL (78.0-98.0); Mean Platelet Volume 8.3 fL (7.4-10.4); Platelet Count 291 thou/uL (130-400); RBC Distribution Width 12.3 % (11.5-14.5); Red Blood Cell (RBC) Count 5.34 mill/uL (4.20-5.40); White Blood Cell (WBC) Count 14.4 thou/uL (4.8-10.8)
[2019-05-20 21:10] LABS: ALT (SGPT) 64 U/L (8-55); AST (SGOT) 85 U/L (5-34); Albumin 3.9 g/dL (3.4-4.8); Alkaline Phosphatase 73 U/L (40-110); Anion Gap 20 mmol/L (10-20); BUN (Urea Nitrogen) 52 mg/dL (9.8-20.1); Bilirubin, Total 1.2 mg/dL (0.2-1.2); CK (CPK) 1028 U/L (29-168); Calc. Creatinine Clearance 0 mL/min (70-130); Calcium 9.4 mg/dL (7.8-10.44); Carbon Dioxide 19 mmol/L (23-31); Chloride 101 mmol/L (98-107); Estimated GFR-MDRD 65; Globulin 3.2 g/dL (2.4-3.5); Glucose 101 mg/dL (83-110); Potassium 4.4 mmol/L (3.5-5.1); Protein, Total 7.1 g/dL (6.0-8.3); Sodium 136 mmol/L (136-145)
--- NOTE | 2019-05-20 21:20 | RAD ---
Radiograph pelvis one view: DATE: 05/20/2019 HISTORY: 83-year-old female status post acute pelvic trauma from fall. FINDINGS: High-grade degenerative disc disease at L4-5 and L5-S1. No grossly displaced pelvic fracture identifi ed. If symptoms do not improve in the next several days, then the most sensitive modality to detect occult pelvic fracture would be noncontrast MRI. No dislocation. Medial-Central bilateral hip joint s pace narrowing. IMPRESSION: No acute fracture identified
--- NOTE | 2019-05-20 21:22 | RAD ---
Radiograph right shoulder 3 views: HISTORY: 83-year-old female with acute traumatic right shoulder pain due to fall FINDINGS: No acute fracture identified. No dislocation. Moderate DJD at AC joint. Mild to moderate DJD at gleno humeral joint. High riding humeral head with narrowed acromiohumeral distance. IMPRESSION: 1. No acute fracture identified. 2. Evidence for chronic, long-standing rotator cuff tear. 3. Osteoarthrosis
--- NOTE | 2019-05-20 21:24 | RAD ---
Radiograph left shoulder 3 views: HISTORY: 83-year-old female with acute traumatic left shoulder pain due to fall. FINDINGS: No fracture is identified. No dislocation. Moderate DJD at AC joint. Mild DJD glenohumeral joint. IMPRESSION: No fracture identified
--- NOTE | 2019-05-20 22:37 | CT ---
CT BRAIN NONCONTRAST: DATE: 05/20/2019 HISTORY: 83-year-old female status post acute head trauma from fall COMPARISON: 03/30/2018 FINDINGS: There is no evidence of acute intra-axial or extra-axial hemorrhage. There is no midline shift or any other mass effect. There is no extra-axial fluid collection. There is no evidence of obstructive hydrocephalus. Calvarium is intact. Again noted are the bilaterally dense, symmetrical moderate sized calcifications involving the globus pallidus of the bilateral basal ganglia, and the dentate nuclei of the bilateral cerebellum. There is no interval change overall. Diffuse brain parenchymal vo lume loss, age-appropriate. IMPRESSION: No acute intracranial findings.
[2019-05-20 23:55] LABS: Bacteria/HPF 4+ HPF (None Seen); Bilirubin Negative (Negative); Blood, Urine 1+ (Negative); Clarity Turbid (Clear); Glucose, Urine (Dipstick) Normal (Negative); Leukocyte 500 Leu/uL (Negative); Nitrite 2+ (Negative); Protein, Urine (Dipstick) 20 mg/dL (Neg-Trace); Urobilinogen Normal mg/dL (Less than 2); WBC/HPF Greater than 50 HPF (0-3)
[2019-05-20 23:56] LABS: Lactic Acid 1.5 mmol/L (0.5-2.2)
== END 2019-05-21 00:50 | disposition left against medical advice (07) ==
LOC: ERS 20:05
DX: S00.03XA Contusion of scalp, initial encounter (principal); S80.01XA Contusion of right knee, initial encounter; E86.0 Dehydration; E86.1 Hypovolemia; M19.90 Unspecified osteoarthritis, unspecified site; E11.9 Type 2 diabetes mellitus without complications; I10 Essential (primary) hypertension; W18.30XA Fall on same level, unspecified, initial encounter; Y92.009 Unspecified place in unspecified non-institutional (private) residence as the place of occurrence of the external cause
CPT/HCPCS: 36415; 70450; 72170; 80053; 81003; 81015; 82550; 83605; 85025; 93005; 96360; 96361

== ENCOUNTER 2019-06-04 12:17 | Outpatient (CLI) | payer MEDICARE ==
--- NOTE | 2019-06-04 15:22 | MRI ---
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 Weakness. FINDINGS: Correlation is made with the CT scan of 05/20/2019. No restricted diffusion is seen. There is ventricular sulcal prominence due to cortical atrophy which appears age-appropriate. Signal loss on the gradient echo sequences of bilateral basal ganglia are c onsistent with calcifications seen on the CT scan. No evidence of infarct, hemorrhage, midline shift, or abnormal extra-axial fluid collections are seen . The ventricular size is appropriate and the basilar cisterns are patent. The visualized paranasal s inuses are well aerated. There is a tiny amount of fluid in the right mastoid air cells. IMPRESSION: 1. No evidence of acute intracranial process. 2. Cortical atrophy. POS: SHOLAA
== END 2019-06-04 12:18 | disposition home or self-care (01) ==
LOC: BICMRI 12:17
PROVIDERS: ATTEND Psychiatry & Neurology Neurology
DX: I66.29 Occlusion and stenosis of unspecified posterior cerebral artery (principal); R53.1 Weakness; G31.9 Degenerative disease of nervous system, unspecified
CPT/HCPCS: 70551

== ENCOUNTER 2019-06-27 13:15 | Outpatient (CLI) | payer MEDICARE ==
--- NOTE | 2019-06-27 13:52 | ULT ---
Exam: Thyroid ultrasound HISTORY: Thyroid cyst. COMPARISON: None FINDINGS: Thyroid isthmus measures 0.51 cm Right thyroid lobe measures 3.3 x 1.9 x 1.2 cm Left thyroid lobe measures 3.8 x 2.3 x 1.5 cm Thyroid nodules: Left thyroid lobe demonstrates a 1.4 x 0.9 x 1.2 cm solid nodule. IMPRESSION: Solid nodule in the left thyroid lobe. TI-RADS level 3, mildly suspicious finding. Follow-up ultrasou nd in one year. Transcribed Date/Time: 06/27/2019 2:04 PM
== END 2019-06-27 13:16 | disposition home or self-care (01) ==
LOC: BICULT 13:15
PROVIDERS: ATTEND Otolaryngology Plastic Surgery within the Head & Neck
DX: E04.1 Nontoxic single thyroid nodule (principal)
CPT/HCPCS: 76536

== ENCOUNTER 2019-09-04 12:03 | Emergency (ER) | payer MEDICARE ==
--- NOTE | 2019-09-04 12:39 | CT ---
EXAM: CT brain without contrast HISTORY: Fall with head injury COMPARISON: 05/20/2019 TECHNIQUE: Multiple contiguous axial images were obtained and a CT of the brain without contrast. FINDINGS: The brain is normal in morphology and attenuation without focal lesions or confluent areas of infarction. Calcifications are seen in the basal ganglia and bilateral cerebellar hemispheres. There is no evidence of hydrocephalus, intracranial hemorrhage, or extra-axial fluid collection. The calvarium and overlying soft tissues are unremarkable. The visualized paranasal sinuses and masto id air cells are well aerated. IMPRESSION: No evidence of acute intracranial abnormality
[2019-09-04 13:33] LABS: #Basophils 0.1 thou/uL (0.0-0.2); #Eosinphils 0.1 thou/uL (0.0-0.7); #Lymphocytes 1.4 thou/uL (1.20-3.40); #Monocytes 0.4 thou/uL (0.11-0.59); #Neutrophils 5.9 thou/uL (1.40-6.50); %Basophils 0.7 % (0.0-1.0); %Eosinophils 1.4 % (0.0-10.0); %Lymphocytes 17.8 % (21.0-51.0); %Monocytes 4.7 % (0.0-10.0); %Neutrophils 75.4 % (42.0-75.0); Hemoglobin 15.8 g/dL (12.0-16.0); Mean Corpuscular HGB CONC 34.3 g/dL (32.0-36.0); Mean Corpuscular Hemoglobin 32.5 pg (27.0-31.0); Mean Corpuscular Volume 94.7 fL (78.0-98.0); Platelet Count 263 thou/uL (130-400); RBC Distribution Width 12.6 % (11.5-14.5); Red Blood Cell (RBC) Count 4.87 mill/uL (4.20-5.40); White Blood Cell (WBC) Count 7.8 thou/uL (4.8-10.8)
[2019-09-04] MEDS ORDERED: Meclizine HCl 25 MG TAB ONE (14:26)
--- NOTE | 2019-09-04 14:52 | RAD ---
EXAM: Single view of the chest HISTORY: Fall at home with head injury COMPARISON: 11/11/2018 FINDINGS: Single view of the chest shows a normal sized cardiomediastinal silhouette. Atheroscleroti c calcifications are seen in the aorta. There is no evidence of consolidation, mass, or pleural effusion. The bones are unremarkable. IMPRESSION: No evidence of acute cardiopulmonary disease
[2019-09-04 16:03] LABS: Bilirubin Negative (Negative); Blood, Urine Negative (Negative); Clarity Clear (Clear); Glucose, Urine (Dipstick) Normal (Negative); Ketone, Urine Negative (Negative); Leukocyte 75 Leu/uL (Negative); Nitrite Negative (Negative); Protein, Urine (Dipstick) Negative (Neg-Trace); RBC/HPF 0-3 HPF (0-3); Specific Gravity, Urine 1.008 (1.002-1.036); Squamous Epithelial 0-3 HPF (0-3); Urobilinogen Normal mg/dL (Less than 2); WBC/HPF 0-3 HPF (0-3); pH, Urine 6.5 (5.0-9.0)
[2019-09-04 16:04] LABS: Bacteria/HPF 1+ HPF (None Seen)
== END 2019-09-04 16:37 | disposition home or self-care (01) ==
LOC: ERS 12:03
DX: S06.0X0A Concussion without loss of consciousness, initial encounter (principal); M19.90 Unspecified osteoarthritis, unspecified site; E11.9 Type 2 diabetes mellitus without complications; I10 Essential (primary) hypertension; R42 Dizziness and giddiness; W18.30XA Fall on same level, unspecified, initial encounter
CPT/HCPCS: 36415; 70450; 71045; 81003; 81015; 84484; 85025; 87086; 93005

== ENCOUNTER 2019-12-06 14:35 | Outpatient (CLI) | payer MEDICARE ==
--- NOTE | 2019-12-06 15:19 | RAD ---
XR Shoulder Lt 3 View STANDARD HISTORY: Left shoulder pain FINDINGS: No fracture or dislocation is identified. There are degenerative changes in the acromial clavicular j oint and glenohumeral joint. Findings are similar to those seen on 02/09/2017
== END 2019-12-06 14:36 | disposition home or self-care (01) ==
LOC: BICRAD 14:35
PROVIDERS: ATTEND Family Medicine
DX: M25.512 Pain in left shoulder (principal)

== ENCOUNTER 2020-01-10 14:59 | Outpatient (CLI) | payer MEDICARE ==
--- NOTE | 2020-01-10 15:55 | ULT ---
Exam: Thyroid ultrasound COMPARISON: 06/27/2019 HISTORY: Cystic nodules/thyroid cyst. Solid nodule left thyroid lobe. FINDINGS: Isthmus: 0.6 cm Right thyroid lobe: 3.1 x 1.7 x 2.1 cm Left thyroid lobe: 1.6 x 2.4 x 3.1 cm right thyroid Thyroid nodules: Right thyroid lobe: 0.4 x 0.3 x 0.3 cm cystic lesion in the upper pole Left thyroid lobe: Stable 1.4 x 1.5 x 1.0 cm solid nodule in the left thyroid lobe. Previously, this nodule measured 1.2 x 0.9 x 1.4 cm. IMPRESSION: Stable solid nodule in the left thyroid lobe. TI-RADS level 3, mildly suspicious finding. 1 year follow-up ultrasound.
== END 2020-01-10 15:00 | disposition home or self-care (01) ==
LOC: BICULT 14:59
PROVIDERS: ATTEND Otolaryngology Plastic Surgery within the Head & Neck
DX: E04.1 Nontoxic single thyroid nodule (principal)
CPT/HCPCS: 76536

== ENCOUNTER 2020-01-31 11:48 | Outpatient (CLI) | payer MEDICARE ==
--- NOTE | 2020-01-31 12:34 | RAD ---
XR Cervical Sp Com W/Obl Fl/Ex History: Cervicalgia Comparison: None. Findings: High-grade degenerative disc space disease C3-C7. High-grade facet arthrosis C4-C7. No acut e fracture or malalignment. No abnormal translation with flexion or extension. Mild straightening of the cervical spine due to de generative changes. No high-grade osseous neural foraminal narrowing. Mild narrowing of the open-mouth odontoid view C1/C2 articulation. Mandible is intact. Impression: Mild spondylosis without abnormal translation with flexion or extension.
--- NOTE | 2020-01-31 12:38 | RAD ---
XR Lumbar Spine 2 Or 3 View History: Low back pain Comparison: None. Findings: Moderate dextroscoliosis centered at the upper lumbar spine. Dense calcifications project o ej the right hip and right pelvis, similar to prior pelvis radiographs likely sequelae of calcified granulomas of the posterior flank as seen on CT examination from 2016. There is degenerative 3 mm L1/L2 retrolisthesis. High-grade facet arthrosis L4/L5 and L5/S1. Narrowing of the interspinous space, greatest at L1/L2 and L2/L3 with subcortical cysts and cortical sclerosis. Mild-moderate degenerative disc space height loss throughout the lumbar spine. Impression: Chronic degenerative findings. No acute osseous abnormality.
--- NOTE | 2020-01-31 12:54 | RAD ---
XR Shoulder Lt 3 View STANDARD History: Shoulder pain Comparison: Radiograph December 06, 2019 Findings: No acute fracture or malalignment. Mild narrowing of the acromioclavicular joint with ossif ication of the superior and inferior acromioclavicular ligaments. Ribs are intact. Possible postsurgical or posttraumatic flattening of the greater tuberosity, similar to the comparison exam. Impression: No acute osseous abnormality.
== END 2020-01-31 11:49 | disposition home or self-care (01) ==
LOC: BICRAD 11:48
PROVIDERS: ATTEND Internal Medicine Rheumatology
DX: M25.512 Pain in left shoulder (principal); M54.2 Cervicalgia; M54.5 Low back pain; M47.812 Spondylosis without myelopathy or radiculopathy, cervical region; M47.816 Spondylosis without myelopathy or radiculopathy, lumbar region
CPT/HCPCS: 36415; 72052; 72100; 84439; 84443; 84481

== ENCOUNTER 2020-02-27 16:03 | Observation (INO) | payer MEDICARE ==
--- NOTE | 2020-02-27 16:38 | RAD ---
EXAM: Portable chest PROVIDED CLINICAL HISTORY: Fall COMPARISON: 09/04/2019 FINDINGS: Cardiac and mediastinal silhouette is within normal limits. No focal consolidation, pleural fluid or pneumothorax evident. IMPRESSION: No evidence for an acute cardiopulmonary process.
--- NOTE | 2020-02-27 16:54 | CT ---
EXAM: CT Brain WO Con PROVIDED CLINICAL HISTORY: Head injury COMPARISON: 09/04/2019 FINDINGS: The ventricular system appears normal in size and morphology. There are acute subdural hematoma is pr esent in the left anterior frontal and left frontotemporal regions. There is hepatic subarachnoid hemorrhage involving both anterior frontal regions. There is no associated significant mass effect. T here is no shift of the midline structures. The basilar cisterns appear patent. The extracranial soft tissues and osseous structures demonstrate an unremarkable CT appearance. IMPRESSION: Bifrontal subarachnoid hemorrhage and left frontotemporal subdural hematomas. Findings communicated t o Dr. Thornton via telephone 4:50 PM 02/27/2020.
--- NOTE | 2020-02-27 16:58 | CT ---
CT CERVICAL SPINE NONCONTRAST: DATE: 02/27/2020 HISTORY: cervical trauma: 84-year-old female status post fall FINDINGS: There are no jumped or perched facets. There is no evidence of acute fracture. The vertebral body hei ghts are maintained. There is no prevertebral soft tissue swelling. There are degenerative disc changes, including severe, and facet osteoarthrosis, including severe, at multiple levels. IMPRESSION: 1) severe Cervical spondylosis. 2) no evidence of acute fracture or acute traumatic subluxation.
[2020-02-27 17:23] LABS: #Basophils 0.1 thou/uL (0.0-0.2); #Eosinphils 0.1 thou/uL (0.0-0.7); #Lymphocytes 1.1 thou/uL (1.20-3.40); #Monocytes 0.5 thou/uL (0.11-0.59); #Neutrophils 7.9 thou/uL (1.40-6.50); %Basophils 0.6 % (0.0-1.0); %Eosinophils 1.3 % (0.0-10.0); %Lymphocytes 11.3 % (21.0-51.0); %Monocytes 4.8 % (0.0-10.0); Hemoglobin 15.5 g/dL (12.0-16.0); Mean Corpuscular HGB CONC 31.7 g/dL (32.0-36.0); Mean Corpuscular Hemoglobin 29.6 pg (27.0-31.0); Mean Corpuscular Volume 93.3 fL (78.0-98.0); Mean Platelet Volume 7.8 fL (7.4-10.4); Platelet Count 315 thou/uL (130-400); Red Blood Cell (RBC) Count 5.24 mill/uL (4.20-5.40); White Blood Cell (WBC) Count 9.7 thou/uL (4.8-10.8)
[2020-02-27 17:30] LABS: Prothrombin Time 13.5 sec (12.0-14.7)
[2020-02-27] MEDS ORDERED: Lidocaine 1% PF 5 ML VIAL ONE (17:36)
[2020-02-27] MEDS ORDERED: Boostrix 0.5 ML (Tdap) VIAL ONE (17:40)
[2020-02-27 17:44] LABS: ALT (SGPT) 10 U/L (8-55); AST (SGOT) 19 U/L (5-34); Albumin 4.2 g/dL (3.4-4.8); Alkaline Phosphatase 82 U/L (40-110); Anion Gap 15 mmol/L (10-20); BUN (Urea Nitrogen) 25 mg/dL (9.8-20.1); Bilirubin, Total 0.5 mg/dL (0.2-1.2); Calc. Creatinine Clearance 0 mL/min (70-130); Calcium 9.6 mg/dL (7.8-10.44); Carbon Dioxide 30 mmol/L (23-31); Chloride 97 mmol/L (98-107); Globulin 3.5 g/dL (2.4-3.5); Glucose 104 mg/dL (83-110); Potassium 3.8 mmol/L (3.5-5.1); Protein, Total 7.7 g/dL (6.0-8.3); Sodium 138 mmol/L (136-145)
--- NOTE | 2020-02-27 18:43 | RAD ---
Exam:3 views left shoulder HISTORY: Fall. Pain. Injury. COMPARISON: 01/31/2020 FINDINGS: Stable degenerative changes. No fracture or dislocation. Unremarkable visualized left ribs. IMPRESSION: Stable degenerative changes. No fracture or dislocation.
[2020-02-27 18:59] LABS: Bacteria/HPF 2+ HPF (None Seen); Bilirubin Negative (Negative); Blood, Urine Negative (Negative); Clarity Clear (Clear); Glucose, Urine (Dipstick) Normal (Negative); Ketone, Urine Negative (Negative); Leukocyte 500 Leu/uL (Negative); Nitrite Negative (Negative); Protein, Urine (Dipstick) Negative (Neg-Trace); RBC/HPF 0-3 HPF (0-3); Specific Gravity, Urine 1.008 (1.002-1.036); Squamous Epithelial 0-3 HPF (0-3); Urobilinogen Normal mg/dL (Less than 2)
[2020-02-27] MEDS ORDERED: Ondansetron ODT 4 MG TAB PO PRN (20:44)
[2020-02-27] MEDS ORDERED: Dextrose 5% in Water 1,000 ML IV PRN (20:44)
[2020-02-27] MEDS ORDERED: Ondansetron PF 4 MG/2 ML Vial IVP PRN (20:44)
[2020-02-27] MEDS ORDERED: Dextrose 50% Abboject 50 ML SYRINGE SLOW IVP PRN (20:44)
[2020-02-27] MEDS ORDERED: traMADol HCl 50 MG TAB PO PRN (20:44)
--- NOTE | 2020-02-27 20:57 | CON ---
DATE OF CONSULTATION: 02/27/2020 HISTORY OF PRESENT ILLNESS: The patient is an 84-year-old female, who was at home this evening and developed some dizziness with sudden syncopal event causing her to hit the left side of her head onto the ground. The patient has little memory of the event. She was brought to the emergency department, where she was evaluated with a noncontrast CT head and found to have small area of traumatic subarachnoid hemorrhage as well as an acute small left frontal subdural hematoma. There was no mass effect or midline shift. The patient has a GCS of 15 and is neurologically intact. She is very comfortable on my exam. She reports she takes an 81 mg aspirin daily and this was stopped here. Her platelets were within normal limits as well as her PT and INR. PAST MEDICAL HISTORY: Osteoarthritis, diabetes, hypertension, and diverticulitis. PAST SURGICAL HISTORY: Bowel obstruction, fibroids, appendectomy, and bilateral cataract surgery. SOCIAL HISTORY: The patient lives at home. She does not smoke, drink, or use any drugs. REVIEW OF SYSTEMS: Per HPI. PHYSICAL EXAMINATION: VITAL SIGNS: Stable. CONSTITUTIONAL: Awake, A and O x4. GCS 15. HEENT: Head, she has some bruising along the left side of her face as well as a small 2 cm laceration recently repaired by the ER. Eyes, PERRLA. Extraocular movements intact. ENT, pink, intact, and moist. She has normal voice. NECK: Nontender. Free active range of motion. No meningismus or nuchal rigidity. CARDIAC: Regular rate and rhythm. PULMONARY: Symmetric chest expansion. MUSCULOSKELETAL: Free active range of motion of all extremities. No focal motor weakness. NEUROLOGIC: A and O x4. No focal neurologic deficits. ASSESSMENT AND PLAN: The patient had syncopal event with fall with small bifrontal traumatic subarachnoid hemorrhage and a small left frontal subdural hematoma. We will monitor her closely on the floor and repeat a morning a.m. CT head. We will hold any anticoagulation. I have discussed this plan with Dr. Ramirez, the Trauma Team, who is in agreement. Job ID: [id number]
[2020-02-27] MEDS ORDERED: cefTRIAXone\\ROCEPHIN 1 GM in Sodium Chloride 0.9% 100 ML IVPB SCH (21:00)
[2020-02-27] MEDS: Acetaminophen 500 MG TAB PO SCH (21:15)
[2020-02-27] MEDS: Famotidine 20 MG TAB PO SCH (21:16)
--- NOTE | 2020-02-27 22:39 | HP ---
REQUESTING PHYSICIAN: Dr. Thornton. CONSULTATIONS: Neurosurgery, Dr. Ramirez. HISTORY OF PRESENT ILLNESS: The patient is an 84-year-old woman, who presented to the emergency department after a ground level fall and hit the left side of her head and had a reported loss of consciousness. She was brought by ground EMS where she was evaluated, examined, and noted to have a subarachnoid hemorrhage as well as a small subdural hematoma. At which time, we were asked to evaluate the patient for admission and obtain neurosurgical consultation. The patient prior to her fall reported having suffered from eating some bad chicken and having 2 to 3 days of diarrhea causing her to feel more and more weak, which she believes contributed to her feeling weak and falling down. The patient is unsure of how long she had fall to the ground, but she was able to use her medical alert watch to summon help and was also found by visitors who were coming to her house who notified EMS. ALLERGIES: SULFA. CURRENT MEDICATIONS: Blood pressure medicine, the patient is unsure of which medicine. PAST MEDICAL HISTORY: Hypertension, diverticulitis, osteoarthritis, and diabetes. PAST SURGICAL HISTORY: Appendectomy, bilateral cataract surgery, bowel obstruction, and fibroid removal. SOCIAL HISTORY: The patient lives at home alone independently. She denies drug, tobacco, or alcohol use. REVIEW OF SYSTEMS: 10-point review of systems is negative unless otherwise stated. PHYSICAL EXAMINATION: VITAL SIGNS: Blood pressure 126/76, heart rate 66, respirations 20, oxygen saturation 99% on room air, and temperature is 97.8. GENERAL: The patient is resting comfortably in bed. She is awake, alert, conversant. Luis Coma Scale is 15. HEENT: Head is normocephalic with contusion noted to the left side of her forehead and cheek area. Eyes, extraocular motions are intact. PERRLA bilaterally. The patient does have a small laceration on the left side of her periorbital area that has been repaired. Ears are atraumatic with discharge. Nose is atraumatic with discharge. Oropharynx is clear. NECK: Nontender. Trachea is midline with no JVD. CHEST: Clear to auscultation with good inspiratory and expiratory effort. HEART: Regular rate and rhythm. ABDOMEN: Soft, flat, nontender with active bowel sounds. EXTREMITIES: Neurovascularly intact x4. LABORATORY FINDINGS: White blood cell count 9.7, hemoglobin 15.5, hematocrit 48.9, platelets 315. Sodium 138, potassium 3.8, chloride 97, CO2 of 30, BUN 25, creatinine 0.82, glucose 104. LFTs are unremarkable. Troponin is 0.011. PT 13, INR 1.0, and PTT 32. Urinalysis shows positive leukocyte esterase, 7 to 10 white blood cell count, and 2+ bacteria. RADIOGRAPHIC EXAM: CT of the brain without contrast shows bifrontal subarachnoid hemorrhages and left frontotemporal subdural hematomas. CT of the C-spine without contrast shows no acute fracture or acute traumatic subluxation. Views of the left shoulder show stable degenerative changes. No fracture or dislocation. AP chest x-ray shows no evidence of acute cardiopulmonary process. ASSESSMENT: 1. Status post fall. 2. Bifrontal subarachnoid hemorrhages. 3. Left frontotemporal subdural hematoma. 4. Scalp laceration. 5. Gastroenteritis likely food borne. 6. History of hypertension, diabetes, currently with normal glucose, diverticulitis. 7. Urinary tract infection. PLAN: 1. Will be to admit the patient to the surgical floor for serial exams with a scheduled repeat head CT in the morning sooner if indicated by decline in her Luis Coma Scale. We will do nonnarcotic pain medications. Clear liquid diet. Pulmonary toilet, gastritis, mechanical VTE prophylaxis. 2. We will treat the patient's urinary tract infection with IV Rocephin initially and transitioned to oral likely within next 24 to 48 hours. In the morning, the patient will work with physical and occupational therapy. She was evaluated in the emergency department by Jenae Rust PA-C from Neurosurgery. The evaluation, examination, laboratory, and radiographic findings were discussed with Dr. Honeycutt after this dictation. Job ID: [id number]
[2020-02-28 01:44] VITALS: BMI 24.1
[2020-02-28] MEDS: Acetaminophen 500 MG TAB PO SCH ×3 (03:18→14:47)
[2020-02-28 05:41] LABS: #Eosinphils 0.2 thou/uL (0.0-0.7); #Lymphocytes 1.2 thou/uL (1.20-3.40); #Monocytes 0.5 thou/uL (0.11-0.59); %Basophils 0.4 % (0.0-1.0); %Eosinophils 2.5 % (0.0-10.0); %Lymphocytes 16.9 % (21.0-51.0); %Monocytes 7.6 % (0.0-10.0); %Neutrophils 72.6 % (42.0-75.0); Hemoglobin 14.1 g/dL (12.0-16.0); Mean Corpuscular HGB CONC 32.4 g/dL (32.0-36.0); Mean Corpuscular Hemoglobin 30.7 pg (27.0-31.0); Mean Corpuscular Volume 94.8 fL (78.0-98.0); Mean Platelet Volume 7.8 fL (7.4-10.4); Platelet Count 256 thou/uL (130-400); RBC Distribution Width 11.8 % (11.5-14.5); White Blood Cell (WBC) Count 6.9 thou/uL (4.8-10.8)
[2020-02-28 05:59] LABS: Anion Gap 12 mmol/L (10-20); BUN (Urea Nitrogen) 20 mg/dL (9.8-20.1); Calc. Creatinine Clearance 57 mL/min (70-130); Calcium 8.6 mg/dL (7.8-10.44); Carbon Dioxide 27 mmol/L (23-31); Chloride 104 mmol/L (98-107); Glucose 86 mg/dL (83-110); Potassium 3.5 mmol/L (3.5-5.1); Sodium 139 mmol/L (136-145)
--- NOTE | 2020-02-28 08:11 | CT ---
PRELIMINARY REPORT/[facility]/EMERGENCY AFTER HOURS PROCEDURE: EXAM: CT Head Without Intravenous Contrast. CLINICAL HISTORY: F84, Repeat eval, bifrontal tsah, sdh. TECHNIQUE: Axial computed tomography images of the head/brain without intravenous contrast. COMPARISON: 02/27/20. FINDINGS: BRAIN: Decreased size of the previously noted bifrontal subdural hematomas with trace residual hemorr geraldine noted. Trace amount of subarachnoid hemorrhage seen in the bilateral frontal lobes. No new hem orrhage visualized. VENTRICLES: No hydrocephalus. ORBITS: The orbits are unremarkable. SINUSES AND MASTOIDS: The paranasal sinuses and mastoid air cells are clear. SOFT TISSUES: No significant facial or scalp soft tissue swelling evident. No radiopaque foreign body is seen. BONES: No acute skull fracture. IMPRESSION: Decreased size of the previously noted bifrontal subdural hematomas with trace residual h emorrhage noted. Trace amount of subarachnoid hemorrhage seen in the bilateral frontal lobes. Anita nued follow-up recommended. No new hemorrhage visualized. ELECTRONICALLY SIGNED BY: Munir Martinez MD Feb 28, 2020 3:43:20 AM [facility] FINAL REPORT CT BRAIN WITHOUT CONTRAST: I agree with the preliminary report given by Dr. Munir Martinez of [facility]. POS: [facility]
[2020-02-28 08:20] LABS: SARS-CoV-2 MS2 Positive; SARS-CoV-2 N Gene Negative; SARS-CoV-2 S Gene Negative; SARS-CoV-2 by NAA Not Detected (NotDetected); SARS-CoV-2 orf1ab Negative
[2020-02-28] MEDS ORDERED: Lidocaine 5% Patch TD SCH (09:00)
[2020-02-28] MEDS: Famotidine 20 MG TAB PO SCH (09:21)
--- NOTE | 2020-02-28 11:48 | PRG ---
DATE OF SERVICE: 02/28/2020 The patient was seen and examined. I agree with Jenae Rust's evaluation on 02/27/2020. The patient is an 84-year-old woman, who fell striking her left forehead, requiring sutures to a laceration. She is neurologically intact with minimal complaints. Head CT reveals scattered traumatic subarachnoid hemorrhage and possible contusion injury bifrontally. This was improved on followup CT this morning. IMPRESSION AND PLAN: Bifrontal contusion/subarachnoid hemorrhage. No plans for neurosurgical intervention. No need for clinical radiographic followup. The patient can be dismissed when appropriate per the Primary Team. Job ID: [id number]
[2020-02-28 16:19] VITALS: TEMP 97.7
[2020-02-28 17:40] VITALS: BP 136/58
[2020-02-28] MEDS ORDERED: Nitrofurantoin Monohyd/M-Cryst 100 MG CAP PO SCH (21:00)
[2020-02-28] MEDS ORDERED: Lidocaine Patch Removal 1 EACH TOP SCH (21:00)
--- NOTE | 2020-02-28 21:30 | DIS ---
DATE OF ADMISSION: 02/27/2020 DATE OF DISCHARGE: 02/28/2020 ADMISSION DIAGNOSES: 1. Status post ground level fall. 2. Bifrontal subarachnoid hemorrhages. 3. Left frontotemporal subdural hematoma. 4. Scalp laceration. 5. Gastroenteritis, likely food-borne. 6. History of hypertension, diabetes with normal glucose, currently history of diverticulitis, urinary tract infection present on admission. CONSULTATION: Neurosurgery, Dr. Ramirez. PROCEDURES: None. SUMMARY: The patient is an 84-year-old woman, who reportedly had a ground level fall at home. She was able to activate her medic alert bracelet and was also found by friends who were visiting. She was brought to the emergency department where she underwent evaluation and examination, was noted to have the above injuries. The patient was admitted to the hospital for frequent exams. A repeat head CT, which in the morning, which showed to be improved from the previous night. The patient remained a GCS 15 from admission until discharge. The patient was evaluated prior to discharge by Dr. Ramirez who agreed that she was able to be discharged home and did not require any scheduled followup. The patient was informed to stay off her baby aspirin for 2 weeks and any nonsteroidal anti-inflammatory medications for at least [address] Cisneros and myself had long discussions with the patient and family regarding placement. The patient was adamant that she be able to go home. Arrangements were made with family for discharge home with return precautions. The patient was offered inpatient rehab skilled facilities and home health, and she declined all. Job ID: [id number]
== END 2020-02-28 19:30 | disposition home or self-care (01) ==
LOC: ERS 16:03 → SURG B 18:14
PROVIDERS: ADMIT Surgery; ATTEND Surgery
DX: S06.6X9A Traumatic subarachnoid hemorrhage with loss of consciousness of unspecified duration, initial encounter (principal); S06.5X9A Traumatic subdural hemorrhage with loss of consciousness of unspecified duration, initial encounter; S01.01XA Laceration without foreign body of scalp, initial encounter; K52.9 Noninfective gastroenteritis and colitis, unspecified; I10 Essential (primary) hypertension; E11.9 Type 2 diabetes mellitus without complications; K57.92 Diverticulitis of intestine, part unspecified, without perforation or abscess without bleeding; N39.0 Urinary tract infection, site not specified; M19.90 Unspecified osteoarthritis, unspecified site; M47.812 Spondylosis without myelopathy or radiculopathy, cervical region; Z79.82 Long term (current) use of aspirin; Z79.899 Other long term (current) drug therapy; Z88.2 Allergy status to sulfonamides; Z91.018 Allergy to other foods; Z20.822 Contact with and (suspected) exposure to COVID-19; W18.30XA Fall on same level, unspecified, initial encounter; Y92.009 Unspecified place in unspecified non-institutional (private) residence as the place of occurrence of the external cause
CPT/HCPCS: 70450 ×2; 71045; 72125; 73030; 80048; 80053; 84484; 85025 ×2; 85610; 85730; 87086; 90471; 90715; 93005; 96365; 97116; 97139 ×2; 97530; 97535; 99285; U0003; 36415; 81003; 81015; 87635; 96367; G0378; G0390; J0690; J0696; J3490

== ENCOUNTER 2020-03-06 14:15 | Inpatient (IN) | payer MEDICARE ==
[~2020-03-06 14:15] MED LIST: Dexamethasone 20 MG/5 ML VIAL ONE; Lidocaine 1% PF 5 ML VIAL ONE; Ondansetron PF 4 MG/2 ML Vial ONE; PHENYLEPHRINE-NS 100 MCG/ML 10 ML SYRINGE ONE; PROPOFOL 200 MG/20 ML VIAL ONE; Rocuronium Bromide 10 MG/ML (10ML VIAL) ONE
[2020-03-06] MEDS ORDERED: HYDROcodone/Acetaminophen 5/325 mg Tablet ONE (14:52)
[2020-03-06] MEDS ORDERED: Ondansetron ODT 4 MG TAB ONE (14:52)
--- NOTE | 2020-03-06 15:23 | CT ---
Exam: CT cervical spine without contrast HISTORY: Patient fell week ago. Hit his head. Mechanical fall today. Pain. COMPARISON: 02/27/2020 FINDINGS: No craniocervical dissociation. Appropriate alignment of the lateral masses of C1 and C2. Intact odon toid process Appropriate alignment of the facets. Persistent grade 1 anterolisthesis of C3 upon C4, C4 upon C5 and C7 upon T1. Interval anterolisthesis of C6 upon C7 secondary to bilateral facet fractures. Specifically there is a right superior facet fracture at C7 and a inferior facet fracture at C6. There is evidence of jumped facets bilaterally. Soft tissue neck structures: No mass, lymphadenopathy or hematoma. No prevertebral soft tissue swelli ng. Upper mediastinum and lung apices: Chronic changes are once again demonstrated. Bilaterally apical pl eural thickening Central spinal canal: There are varying degrees of central canal stenosis and neural foraminal narrow ing due to degenerative change. There is moderate central canal stenosis at C6-C7 secondary to fracture with resultant jumped/perched facets. There is severe right neural foraminal narrowing at C6 -C7 secondary to the superior facet fracture. There is a vertically oriented fracture involving the C7 vertebral body. Vertebral bodies: C7 vertebral body fracture and facet fractures as described above. There is widenin g of the interspinous distance, worrisome for ligamentous injury. IMPRESSION: 1. C7 vertebral body fracture 2. Jumped facets at C6-C7. There are fractures involving the C6 and C7 facets as described above. Mod erate central canal stenosis. Severe right neural foraminal narrowing at C6-C7 secondary to fracture fragment. 3. Widening of the interspinous distance at C6-C7, worrisome for ligamentous injury. Cervical spine M RI and neurosurgical consultation is recommended Results of the study discussed with Magdalena Sy 03/06/2020 at 3:20 PM Code CR Transcribed Date/Time: 03/06/2020 3:38 PM
--- NOTE | 2020-03-06 15:28 | CT ---
CT HEAD WITHOUT IV CONTRAST COMPARISON: 02/28/2020 and 03/30/2018 HISTORY: Injury after a fall. TECHNIQUE: Axial CT imaging at 5 mm intervals from vertex through skull base without contrast FINDINGS: There is decreased attenuation in the periventricular white matter which is nonspecific but likely re flective of chronic small vessel ischemic changes. Stable calcifications are again seen involving each basal ganglia as well as in the cerebellum bilaterally. Again noted is minimal subdural collection and dural thickening along the inner table of the left cer ebral convexity related to sequela of prior subdural hemorrhage with greatest transverse dimension is 2 to 3 mm. However, there is evidence of new area of subdural hemorrhage along the left tentorium with greatest dimension of approximately 5 mm. Expected evolutionary changes in subarachnoid hemorrhage in the bifrontal regions as well as resolution of parafalcine hemorrhage.. There is mild cerebral volume loss. The ventricular system is normal in size, shape, and position for the degree of sulcal atrophy. There is no evidence of an acute infarction, hemorrhage, mass effect, or midline shift. Skull base has a normal CT appearance. Mucosal thickening present in the right sphenoid sinus. Mastoid air cells are clear. Osseous structures appear intact. No calvarial fracture is seen. IMPRESSION: 1. Small acute subdural hemorrhage along the left tentorium. 2. Interval decrease in size of hemorrhage along the left calvarium with residual left subdural colle ction and/or dural thickening related to prior subdural hemorrhage along the left cerebral convexity. 3. Expected evolutionary changes in bifrontal subarachnoid hemorrhage and parafalcine hemorrhage. 4. Above findings discussed with Magdalena Sy, nurse practitioner in the emergency department on 02/20 at 1524 hours.
--- NOTE | 2020-03-06 15:33 | RAD ---
Right elbow 4 views HISTORY: Fall. Injury. FINDINGS: Radiocapitellar alignment is maintained. There is mild osteophytosis. No acute fracture, dislocation, or fluid distention of the joint capsule. IMPRESSION : No acute abnormalities are demonstrated.
--- NOTE | 2020-03-06 15:34 | RAD ---
XR Shoulder Rt 3 View STANDARD History: Fall Comparison: None. Findings: No acute displaced fracture or malalignment. Abnormal subacromial space narrowing. Advanced degenerative disease acromioclavicular joint. Impression: No acute fracture or malalignment. Rotator cuff insufficiency.
--- NOTE | 2020-03-06 15:34 | RAD ---
Exam: XR Shoulder Lt 3 View STANDARD HISTORY: Shoulder pain after fall. COMPARISON: 02/27/2020 FINDINGS: Left acromioclavicular joint osteoarthritis is present. Minimal left glenohumeral osteoarthropathy is present. No fracture or dislocation is identified. No interval change. IMPRESSION: Stable degenerative changes without evidence of a fracture or dislocation seen.
[2020-03-06] MEDS ORDERED: Fentanyl 100 MCG/2 ML VIAL ONE ×4 (16:13→20:20)
[2020-03-06] MEDS ORDERED: Ondansetron PF 4 MG/2 ML Vial ONE (16:13)
[2020-03-06] MEDS ORDERED: Thrombin 5000 UNITS/5 ML VIAL ONE ×2 (16:35→20:19)
[2020-03-06 16:51] LABS: #Lymphocytes 1.1 thou/uL (1.20-3.40); #Monocytes 0.6 thou/uL (0.11-0.59); #Neutrophils 14.9 thou/uL (1.40-6.50); %Basophils 0.2 % (0.0-1.0); %Eosinophils 0.2 % (0.0-10.0); %Lymphocytes 6.4 % (21.0-51.0); %Monocytes 3.7 % (0.0-10.0); %Neutrophils 89.5 % (42.0-75.0); Hemoglobin 15.1 g/dL (12.0-16.0); Mean Corpuscular HGB CONC 33.5 g/dL (32.0-36.0); Mean Corpuscular Hemoglobin 31.5 pg (27.0-31.0); Mean Corpuscular Volume 93.9 fL (78.0-98.0); Mean Platelet Volume 7.3 fL (7.4-10.4); Platelet Count 324 thou/uL (130-400); RBC Distribution Width 12.2 % (11.5-14.5); Red Blood Cell (RBC) Count 4.81 mill/uL (4.20-5.40); White Blood Cell (WBC) Count 16.6 thou/uL (4.8-10.8)
[2020-03-06 16:58] LABS: PTT 29.4 sec (22.9-36.1)
[2020-03-06] MEDS ORDERED: Morphine 2 MG/ML VIAL SLOW IVP PRN (17:07)
[2020-03-06] MEDS ORDERED: Ondansetron PF 4 MG/2 ML Vial IVP PRN (17:07)
[2020-03-06] MEDS ORDERED: Dextrose 50% Abboject 50 ML SYRINGE SLOW IVP PRN (17:07)
[2020-03-06] MEDS ORDERED: Dextrose 5% in Water 1,000 ML IV PRN (17:07)
[2020-03-06] MEDS ORDERED: Insulin Regular 300 UNITS/3 ML VIAL SC PRN ×2 (17:07)
[2020-03-06] MEDS ORDERED: hydrALAZINE 20 MG/ML VIAL SLOW IVP PRN (17:07)
[2020-03-06 17:11] LABS: ALT (SGPT) 29 U/L (8-55); AST (SGOT) 38 U/L (5-34); Albumin 3.8 g/dL (3.4-4.8); Alkaline Phosphatase 70 U/L (40-110); Anion Gap 17 mmol/L (10-20); BUN (Urea Nitrogen) 18 mg/dL (9.8-20.1); Bilirubin, Total 0.7 mg/dL (0.2-1.2); Calc. Creatinine Clearance 0 mL/min (70-130); Calcium 8.9 mg/dL (7.8-10.44); Carbon Dioxide 23 mmol/L (23-31); Chloride 102 mmol/L (98-107); Globulin 2.9 g/dL (2.4-3.5); Glucose 127 mg/dL (83-110); Potassium 3.4 mmol/L (3.5-5.1); Protein, Total 6.7 g/dL (6.0-8.3); Sodium 139 mmol/L (136-145)
[2020-03-06] MEDS ORDERED: Sodium Chloride 0.9% 1,000 ML IV SCH ×2 (17:15→19:54)
--- NOTE | 2020-03-06 17:18 | RAD ---
XR Chest 1 View Portable HISTORY: Preoperative evaluation. Intracranial hemorrhage COMPARISON: 02/27/2020 FINDINGS: The heart size is normal. The aorta is tortuous. The lungs are well expanded without focal areas of consolidation, pneumothorax or pleural effusions. IMPRESSION: No radiographic evidence of acute cardiopulmonary process.
[2020-03-06] MEDS ORDERED: Ketamine 50 MG/ML (10ML VIAL) ONE (17:23)
--- NOTE | 2020-03-06 17:36 | HP ---
HISTORY OF PRESENT ILLNESS: Ms. Mcdonough is an 84-year-old woman, who was actually admitted 8 days ago for a fall at home with subdural hematoma. She returns now after another fall at home today, where she fell out of a chair after it slid out from under her, causing an extension injury and she was brought to the emergency department. CT scan there reveals new subdural hematoma and scant subarachnoid hemorrhage as well as a flexion type cervical spine fracture, anterior body of C7 has distracted anteriorly and there are bilateral facet fractures with jump facet on the right, perched facet on the left. For this reason, Neurosurgery was called in the emergency department. The patient is awake, alert, and oriented. She understands the situation where she is, her name, her date of , current month and year. She confirms pain to the cervical spine and there is an [place] collar at present. She does have radicular pain mostly to the right upper extremity that are new. This certainly could be related to the site of fracture. She is able to move bilateral upper and bilateral lower extremities with ease and has excellent strength, though has some pain limited the range of motion on the right. Pupils are equal, round, and reactive to light. Extraocular movements are intact. PAST MEDICAL HISTORY: Significant for hypertension, diverticulitis, osteoarthritis, and diabetes. MEDICATIONS: Unspecified blood pressure medication. PAST SURGICAL HISTORY: Appendectomy, bilateral cataract resection, bowel obstruction, removal of fibroid. ALLERGIES: TO SULFA MEDICATIONS. ASSESSMENT: Cervical spine injury, C6-7 fracture and anterolisthesis. PLAN: At this time, we will discuss with the patient's daughter at bedside. Recommendation for urgent surgical reduction and fixation of this fracture. I explained the risks, benefits and alternatives to the patient and to the daughter. They would like to proceed with surgery given unstable nature of her fracture. I discussed the length of recovery and necessity of wearing cervical collar for extended period of time. They would also like to talk to Dr. Estevez for . Job ID: [id number]
[2020-03-06 17:56] LABS: Magnesium 1.8 mg/dL (1.6-2.6); Phosphorus 2.8 mg/dL (2.3-4.7)
[2020-03-06] MEDS ORDERED: Morphine 2 MG/ML VIAL ONE (17:58)
[2020-03-06 18:18] LABS: SARS-CoV-2 NAA Rapid Test Not Detected (NotDetected)
--- NOTE | 2020-03-06 19:05 | HP ---
CONSULTS: Neurosurgery, Dr. Estevez. CHIEF COMPLAINT: Mechanical fall without loss of consciousness, neck pain. HISTORY OF PRESENT ILLNESS: This is an 84-year-old female, who was sitting on a barstool when she started to slide out of the chair causing her to tip over. The patient states that she fell backwards out of the chair, landing on the ground. She denies any loss of consciousness. She denies feeling weak, dizzy, or lightheaded, but had it prior to. The patient was admitted on 02/27/2020 for a fall, in which she sustained a small subarachnoid hemorrhage. The patient is currently awake, alert, and oriented, GCS 15, the patient moves all extremities, the patient does report tingling sensation to her right upper extremity. REVIEW OF SYSTEMS: A 10-point review of systems is negative unless otherwise indicated in the above HPI. PAST MEDICAL HISTORY: Hypertension, diverticulitis, osteoarthritis, and diabetes, diet controlled. PAST SURGICAL HISTORY: Appendectomy, bilateral cataract resection, bowel obstruction, and fibroid removal. ALLERGIES: SULFA. CURRENT MEDICATIONS: 1. Dyazide 37.5/25 daily. 2. Aspirin 81 mg p.o. daily. SOCIAL HISTORY: The patient lives at home alone. Uses a cane to ambulate, her daughter who lives out of state, has been with her recently since her last fall. PHYSICAL EXAMINATION: VITAL SIGNS: Blood pressure 132/100, pulse 70, respirations 19, SpO2 of 100% on room air, and temperature 98.2. GENERAL: Well-appearing elderly female, awake, alert, in no distress, well- fitting [place] collar in place. HEENT: Head is normocephalic, pupils are equal bilateral, left eye lid droop which is chronic, midface stable, dried blood on her lips, abrasions to lateral aspect of both sides of her tongue. No active bleeding. NECK: Immobilized in an [place] collar, the patient complains of posterior neck pain. Trachea is midline, no JVD. RESPIRATORY: Bilateral breath sounds clear, no wheezing, rales, or rhonchi. Respirations are even and nonlabored. CARDIAC: Regular rate and regular rhythm, no murmurs, no pedal edema. ABDOMEN: Soft, nontender, nondistended, pelvis is stable. EXTREMITIES: Moves all extremities, strength 5/5 in all extremities. Distal pulses intact, tingling to the right arm. Sensation intact in all extremities. Decreased ROM LUE, chronic from arthritis. NEUROLOGIC: No focal deficits. GCS 15. LABORATORY DATA: WBC 16.6, RBC 4.81, hemoglobin 15.1, hematocrit 45.1, and platelets 324. PT 13.0, INR 1.0, APTT 29.4. Sodium 139, potassium 3.4, chloride 102, BUN 18, creatinine 0.72, estimated GFR 77, glucose 127, calcium 8.9, phosphorus 2.8, magnesium 1.8, AST 38, ALT 29, alkaline phos 70. Troponin I 0.012, albumin 3.8. DIAGNOSTICS: A 12-lead EKG, sinus rhythm with left ventricular hypertrophy. No acute ST or T-wave changes. Brain CT without contrast, impression; small subacute hemorrhage along the left tentorium. Interval decrease in size of hemorrhage along the left calvarium with residual left subdural collection and/or dural thickening related to prior subdural hemorrhage along the left cerebral convexity. Expected evolutionary changes in the bifrontal subarachnoid hemorrhage and parafalcine hemorrhages. Cervical spine CT, impression; C7 vertebral body fracture. Jumped facets at C6- C7. Moderate central canal stenosis. Severe right neural foraminal narrowing at C6- C7 secondary to fracture fragment. Widening of the interspinous distance at C6-C7. Left shoulder x-ray, impression; stable degenerative changes without evidence of fracture or dislocation. Right shoulder x-ray, no acute fracture or malalignment. Elbow x-ray right, no acute fracture or dislocation. Chest x-ray, impression; heart size is normal. No pneumothorax or pleural effusions. No acute cardiopulmonary process. ASSESSMENT: 1. Mechanical fall from barstool. 2. Cervical spine injury, C6-C7 fracture, and anterolisthesis. 3. Small acute subarachnoid hemorrhage along the left tentorium. 4. History of hypertension, diverticulitis, osteoarthritis, and diabetes, diet controlled. PLAN: Neurosurgery plans to take the patient emergently to the OR for reduction and fixation of her cervical fracture. N.p.o. Maintenance IV fluids, normal saline at 120 an hour. We will replace electrolytes. The patient is to remain in [place] collar until fixed. Additional recommendations per Neurosurgery. Admit to the surgical floor postop with q.2 hour neuro checks. PT and OT to evaluate and treat tomorrow. Pain control. The plan was discussed with the attending, who agrees. The plan was discussed with the patient and her family, who agree. Job ID: [id number] MTDD
--- NOTE | 2020-03-06 19:08 | PRG ---
DATE OF SERVICE: 03/06/2020 Ms. Mcdonough is an 84-year-old female with a recent fall at home, where she has sustained bilateral jumped facet at C6-C7. She has associated facet fractures as well as a fracture of the anterior body at C7. This is her second ER visit in as many weeks secondary to fall. The current CT shows natural evolution of the previously identified subdural hematoma as well as traumatic subarachnoid hemorrhage and intraparenchymal contusions from her previous fall. I met with her and her daughter and discussed with them at length the diagnosis as well as my recommendations, which is reduction of the fracture and internal fixation. I discussed with them in detail all the risks, benefits, and alternatives, namely infection, spinal cord injury, nerve injury, dysphagia, and dysphonia. I also discussed with them risk of nonunion given her age in quality of bone. A lot of trepidation on part of the family with regard to perioperative disposition. Normally a patient of this age of this type of fracture with these number of falls over a short period of time, inpatient rehab would be recommended, but the patient is somewhat adamantly against this. Disposition planning may be a challenge. The surgical plan will be to take her to the operating room and reduce the jumped facet at C6-C7 and perform a fusion at that level via an anterior approach. Also mentioned them the possibility of needing applied [place] tongs for the purposes of reduction if this could not be done without them. Job ID: [id number] MTDD
[2020-03-06] MEDS ORDERED: Potassium Chloride 40 MEQ in Sodium Chloride 0.9% 250 ML 250 ML IVPB SCH (20:00)
[2020-03-06] MEDS ORDERED: SUGAMMADEX SODIUM 200 MG/2 ML VIAL ONE (20:38)
[2020-03-06] MEDS ORDERED: Magnesium 2 GM/50 ML 2 GM in Premix Bag 1 BAG IVPB SCH (21:00)
[2020-03-06] MEDS ORDERED: Potassium Phosphate 30 MMOL in Sodium Chloride 0.9% 250 ML 250 ML IVPB SCH (21:00)
[2020-03-06] MEDS ORDERED: Ondansetron HCl/PF 4 MG/2 ML Vial IVP PRN (21:07)
[2020-03-06] MEDS ORDERED: PACU-Morphine 4MG/ML VIAL SLOW IVP PRN (21:07)
[2020-03-06] MEDS ORDERED: Morphine Sulfate 2 MG/ML SYRINGE SLOW IVP PRN (21:07)
[2020-03-06] MEDS ORDERED: Promethazine HCl 25 MG/ML VIAL IM PRN (21:07)
[2020-03-06] MEDS ORDERED: Promethazine HCl 25 MG/ML VIAL SLOW IVP PRN (21:07)
[2020-03-06] MEDS ORDERED: HYDROmorphone 2 MG/ML VIAL SLOW IVP PRN (21:07)
--- NOTE | 2020-03-06 22:09 | OP ---
DATE OF PROCEDURE: 03/06/2020 LAUNDRY WORKER: Jimmy Segundo PA-C INDICATIONS FOR PROCEDURE: Unstable cervical spine fracture and prevent neurologic decline. DIAGNOSES: C6-7 fracture dislocation bilateral, jumped facets; anterior C7 body fracture; and C7-T1 disrupted disk and anterior longitudinal ligament. PROCEDURES PERFORMED: Reduction of C6-7 jumped facets with anterior cervical diskectomy at C6-7 and C7-T1, anterior cervical plating, C6-C7. ANESTHESIA: General. DESCRIPTION OF PROCEDURE: The patient was brought into the operating room and placed under general anesthesia. She was carefully placed on table in a supine position. A C-arm image was brought into the field, where under real-time fluoroscopy, the patient underwent close reduction of the jumped facets. After completing the reduction, a transverse incision was planned over the lateral aspect of the neck on the right. After prepping and draping and after an appropriate preoperative pause, the incision was created. The underlying platysma muscle was identified and incised. A blunt tissue plane anterior to the sternocleidomastoid muscle was used to gain access to the prevertebral space. The longus colli muscles as well as paravertebral soft tissues were erythematous and swollen as one might expect from a traumatic event. The fracture along the anterior aspect of C7 was identified as was a disrupted disk at C7-T1. There was also a large osteophyte at C6-7 with disrupted disk material. The cortical aspect of the disrupted portion of C7 was carefully removed. Diskectomy was performed in C6-7 with complete removal of disk material as well as the anterior osteophytes. The 7 mm lordotic PEEK cage packed with allograft and autograft material was placed within the interbody space. Due to the disruption of the anterior longitudinal ligament and the disk at C7-T1, a limited diskectomy was performed there, where a 5 mm PEEK cage with allograft and autograft was carefully placed within the interbody space. A separate anterior cervical plate was then fashioned from the spine and secured with six screws. Midline and lateral structures were then inspected and found to be free from any significant trauma. Intraoperative films were obtained to confirm reduction and appropriate placement of hardware. The wound was then closed in anatomic layers, and a pressure dressing was applied. There were no known procedural complications. Job ID: [id number]
[2020-03-06] MEDS: Acetaminophen 500 MG TAB PO SCH ×2 (22:39→23:28)
[2020-03-06] MEDS: traMADol HCl 50 MG TAB PO SCH ×2 (22:55→23:45)
[2020-03-06] MEDS: Gabapentin 100 MG CAP PO SCH (22:56)
[2020-03-06] MEDS: Senokot S 8.6-50 MG TAB PO SCH (22:56)
[2020-03-06] MEDS: Famotidine/PF 20 mg/2ml Vial SLOW IVP SCH (22:57)
[2020-03-06 23:13] VITALS: BMI 23.7
[2020-03-06] MEDS ORDERED: Artificial Tear Sol 15 ML BOT EA EYE PRN (23:32)
[2020-03-07 00:16] LABS: Bacteria/HPF None Seen HPF (None Seen); Bilirubin Negative (Negative); Blood, Urine Negative (Negative); Clarity Clear (Clear); Glucose, Urine (Dipstick) Normal (Negative); Ketone, Urine 10 mg/dL (Negative); Leukocyte Negative Leu/uL (Negative); Nitrite Negative (Negative); Protein, Urine (Dipstick) Negative (Neg-Trace); RBC/HPF 0-3 HPF (0-3); Specific Gravity, Urine 1.021 (1.002-1.036); Squamous Epithelial 0-3 HPF (0-3); Urobilinogen Normal mg/dL (Less than 2); WBC/HPF 0-3 HPF (0-3); pH, Urine 6.5 (5.0-9.0)
[2020-03-07 00:17] LABS: Urine Culture Reflex No No
--- NOTE | 2020-03-07 00:46 | PRG ---
DATE OF SERVICE: 03/07/2020 SUBJECTIVE: The patient was seen postoperatively on the floor. She was lying in bed, C-collar in place. She was awake and alert, although she kept her eyes closed for the majority of our discussion. She was complaining of pain in her bilateral upper extremities. Nursing at the bedside was providing the patient with medication. She did drink a little bit of water, but reported that her throat was sore and would like to try taking p.o. medications in the morning. I was in agreement with this. The patient's daughter at bedside. We did discuss the plan overnight as well as the plan for tomorrow. OBJECTIVE: VITAL SIGNS: The patient was hemodynamically stable and not tachycardic. She was not ill-appearing. ASSESSMENT: 1. Postoperative day #0, status post fixation of C6 on C7 fracture with jumped facets and narrowing. 2. Subacute small subdural and subarachnoid hemorrhages, stable. 3. History of hypertension, diverticulitis, recent urinary tract infection and diabetes. PLAN: Continue n.p.o. The patient can have a few ice chips when the nurses in the room. Continue normal saline at 75 an hour. The patient to be evaluated by speech in the morning and start a swallow evaluation. Diet will be modified and advanced depending on evaluation. PT and OT also to start tomorrow. The patient will likely need placement in acute rehab facility. We will ask Case Management to start discussing that process with the family tomorrow. Job ID: [id number]
[2020-03-07] MEDS ORDERED: CEFAZOLIN 1 GM VIAL SLOW IVP SCH (03:00)
[2020-03-07] MEDS: traMADol HCl 50 MG TAB PO PRN (03:28)
[2020-03-07] MEDS: CEFAZOLIN 2 GM in Premix Bag 1 BAG IVPB SCH ×2 (03:31→11:39)
[2020-03-07] MEDS: traMADol HCl 50 MG TAB PO SCH ×4 (05:39→23:39)
[2020-03-07] MEDS: Acetaminophen 500 MG TAB PO SCH ×4 (05:46→23:38)
[2020-03-07] MEDS: Cyclobenzaprine 10 MG TAB PO PRN (07:23)
[2020-03-07 07:39] LABS: #Lymphocytes 0.8 thou/uL (1.20-3.40); #Monocytes 0.5 thou/uL (0.11-0.59); #Neutrophils 9.3 thou/uL (1.40-6.50); %Basophils 0.2 % (0.0-1.0); %Eosinophils 0.1 % (0.0-10.0); %Lymphocytes 7.3 % (21.0-51.0); %Monocytes 4.6 % (0.0-10.0); %Neutrophils 87.8 % (42.0-75.0); Hemoglobin 14.4 g/dL (12.0-16.0); Mean Corpuscular HGB CONC 33.3 g/dL (32.0-36.0); Mean Corpuscular Hemoglobin 31.6 pg (27.0-31.0); Mean Corpuscular Volume 94.7 fL (78.0-98.0); Mean Platelet Volume 7.5 fL (7.4-10.4); Platelet Count 310 thou/uL (130-400); Red Blood Cell (RBC) Count 4.55 mill/uL (4.20-5.40); White Blood Cell (WBC) Count 10.6 thou/uL (4.8-10.8)
[2020-03-07 07:59] LABS: Anion Gap 16 mmol/L (10-20); BUN (Urea Nitrogen) 17 mg/dL (9.8-20.1); Calc. Creatinine Clearance 53 mL/min (70-130); Calcium 8.4 mg/dL (7.8-10.44); Carbon Dioxide 26 mmol/L (23-31); Chloride 102 mmol/L (98-107); Glucose 141 mg/dL (83-110); Magnesium 2.3 mg/dL (1.6-2.6); Phosphorus 6.1 mg/dL (2.3-4.7); Potassium 4.6 mmol/L (3.5-5.1); Sodium 139 mmol/L (136-145)
[2020-03-07] MEDS ORDERED: FLU VACC QS2020-21(65YR UP)/PF 240 MCG/0.7 ML SYRINGE IM ONE (09:00)
[2020-03-07] MEDS: Famotidine/PF 20 mg/2ml Vial SLOW IVP SCH ×2 (09:15→20:33)
--- NOTE | 2020-03-07 10:28 | PRG ---
DATE OF SERVICE: 03/07/2020 SUBJECTIVE: The patient was seen during morning rounds, awake, alert, lying in bed. The patient is postop day one status post fixation of C6 and C7 fracture. The patient had no overnight events. The patient just received pain medication and her pain is controlled at this time. The patient does have some slurred speech, but this is likely due to her tongue that is swollen due to her biting both sides of her tongue when she fell yesterday. The patient is pending Speech Therapy evaluation. The patient continues to complain of tingling sensation to the right arm. OBJECTIVE: VITAL SIGNS: Temperature 97.4, pulse 68, respirations 14, SpO2 of 92% on room air, blood pressure 111/69. GENERAL: A well-appearing elderly female, awake, alert, in no distress. HEENT: Abrasion, left forehead. Swelling and abrasion to tongue. Anterior neck dressing is clean, dry, and intact. Well-fitting cervical collar in place. Chronic left eye droop. RESPIRATORY: Good inspiratory and expiratory effort. Respirations are even and nonlabored. CARDIAC: Regular rate, regular rhythm. ABDOMEN: Soft, nontender, and nondistended. EXTREMITIES: Moves all extremities. Decreased ROM and pain LUE, chronic. Normal sensation in all extremities. Strength; upper extremities 4/5, lower extremity 5/5. Reports tingling in right arm. NEUROLOGIC: GCS 15. LABORATORY DATA: WBC 10.6, RBC 4.55, hemoglobin 14.4, hematocrit 43.1, platelets 310. Sodium 139, potassium 4.6, BUN 17, creatinine 0.77, estimated GFR of 71, glucose 141, magnesium 2.3. No new diagnostics to review. ASSESSMENT: 1. Postop day #1 status post reduction of C6-C7 jumped facet with anterior cervical diskectomy at C6-C7 and C7-T1; anterior cervical plating, C6-C7. 2. Subacute small subdural and subarachnoid hemorrhages, stable. 3. History of hypertension; diverticulitis; recent urinary tract infection; and diabetes, diet controlled. PLAN: Continue supportive care and pain regimen. Increase diet per Speech Therapy. Once the patient is tolerating fluids, we will discontinue her maintenance IV fluids. PT and OT to evaluate and treat. The plan was discussed with the patient's family, who agree. Job ID: [id number] [facility]
--- NOTE | 2020-03-07 10:40 | PRG ---
DATE OF SERVICE: Ms. Mcdonough is postop day #1, following anterior cervical diskectomy and fusion at C6-T1, following a fall at home with jumped facet at C6-7 and traumatic anterolisthesis. This morning, she is doing mostly well. Pain was a bit of an issue overnight, however, now she seems to be much more comfortable, just has an aching neck pain and occipital headache as well as still some components of radicular pain that they are much improved from yesterday. I discussed at length with daughter and the patient at bedside expectations and prognosis, need for therapy, and need for wearing collar for at least 8 weeks. They are understanding of this. I discussed with nurse also that we will need to get the [place] J collar that was ordered and put on in place of the [place] and this will need to be worn at all times. No additional complaints. We will continue to follow. Job ID: [id number]
[2020-03-07] MEDS: Gabapentin 100 MG CAP PO SCH ×4 (11:50→20:33)
[2020-03-07] MEDS: Polyethylene Glycol 3350 17 GM Packet PO SCH (13:07)
[2020-03-07] MEDS: Senokot S 8.6-50 MG TAB PO SCH ×2 (13:07→20:33)
[2020-03-07] MEDS ORDERED: Morphine 2 MG/ML VIAL SLOW IVP PRN (19:47)
--- NOTE | 2020-03-07 22:47 | PRG ---
DATE OF SERVICE: 03/07/2020 SUBJECTIVE: The patient was seen this evening during rounds. She was lying in bed, resting comfortably. C-collar was in place. She was awake and alert. Reports pain in her bilateral upper extremities have improved. The patient is tolerating a diet, asking for Jell-O, has not yet stood up and ambulated but did sit at the edge of the bed today. OBJECTIVE: VITAL SIGNS: Temperature 97.6, pulse 93, respirations 16, oxygen saturation 97% on 2 L nasal cannula, blood pressure 134/59. ASSESSMENT: 1. Status post mechanical fall from standing. 2. C6 and C7 fractures with joint malalignment. 3. Subacute small subdural and subarachnoid hemorrhages, stable. 4. History of hypertension, diverticulitis, diabetes. PLAN: Continue current diet with modifications. Continue physical and occupational therapy. Continue supportive care. The patient is pending a [place] J-collar which is to be worn at all times. We will discuss tomorrow with Neurosurgery about the timing of DVT prophylaxis as tomorrow would be 48 hours since her arrival. Job ID: [id number]
[2020-03-08] MEDS: Cyclobenzaprine 10 MG TAB PO PRN (03:11)
[2020-03-08] MEDS: Acetaminophen 500 MG TAB PO SCH ×4 (05:21→23:45)
[2020-03-08] MEDS: traMADol HCl 50 MG TAB PO SCH ×4 (05:21→23:44)
[2020-03-08 06:09] LABS: #Eosinphils 0.1 thou/uL (0.0-0.7); #Lymphocytes 1.7 thou/uL (1.20-3.40); #Monocytes 0.5 thou/uL (0.11-0.59); #Neutrophils 5.8 thou/uL (1.40-6.50); %Basophils 0.3 % (0.0-1.0); %Eosinophils 0.9 % (0.0-10.0); %Lymphocytes 20.6 % (21.0-51.0); %Monocytes 6.6 % (0.0-10.0); %Neutrophils 71.6 % (42.0-75.0); Hemoglobin 12.3 g/dL (12.0-16.0); Mean Corpuscular HGB CONC 33.1 g/dL (32.0-36.0); Mean Corpuscular Hemoglobin 31.4 pg (27.0-31.0); Mean Corpuscular Volume 94.8 fL (78.0-98.0); Mean Platelet Volume 7.4 fL (7.4-10.4); Platelet Count 267 thou/uL (130-400); RBC Distribution Width 12.2 % (11.5-14.5); Red Blood Cell (RBC) Count 3.93 mill/uL (4.20-5.40)
[2020-03-08 06:25] LABS: Anion Gap 14 mmol/L (10-20); BUN (Urea Nitrogen) 18 mg/dL (9.8-20.1); Calc. Creatinine Clearance 59 mL/min (70-130); Calcium 7.8 mg/dL (7.8-10.44); Carbon Dioxide 23 mmol/L (23-31); Chloride 104 mmol/L (98-107); Glucose 79 mg/dL (83-110); Magnesium 2.1 mg/dL (1.6-2.6); Phosphorus 2.7 mg/dL (2.3-4.7); Potassium 4.6 mmol/L (3.5-5.1); Sodium 136 mmol/L (136-145)
--- NOTE | 2020-03-08 06:37 | PRG ---
DATE OF SERVICE: 03/08/2020 Ms. Mcdonough is on the second day postop from an emergent C6-C1 ACDF with plating across C6-7. Her oropharyngeal discomforts have improved already to some extent and her bilateral upper extremity pain has actually also improved to fair amount. She is resting in bed comfortably, but easily arouses. Collar has now been changed to a [place] J which is excellent. We will continue to follow along. No additional interventions at this time. Job ID: [id number]
[2020-03-08] MEDS ORDERED: Sodium Phosphate 30 MMOL in Sodium Chloride 0.9% 250 ML 250 ML IVPB SCH (07:30)
[2020-03-08] MEDS: Senokot S 8.6-50 MG TAB PO SCH ×2 (08:10→20:37)
[2020-03-08] MEDS: Gabapentin 100 MG CAP PO SCH ×3 (08:11→20:38)
[2020-03-08] MEDS: Famotidine/PF 20 mg/2ml Vial SLOW IVP SCH ×2 (08:11→20:37)
[2020-03-08] MEDS: Polyethylene Glycol 3350 17 GM Packet PO SCH (08:11)
--- NOTE | 2020-03-08 09:00 | PRG ---
DATE OF SERVICE: 03/08/2020 I reviewed the note as well as Assessment and Plan by Mr. Jimmy Segundo on Angely Mcdonough. She is now 2 days status post closed reduction of bilateral jumped facets with ACDF. She is recovering as we would expect. She has the anticipated postsurgical pain and residual radiculopathy. The plan will be mobilization as tolerated with PT and OT. She will need appropriate disposition planning. She will continue to wear her collar for the next 6 to 8 weeks. Job ID: [id number]
[2020-03-08] MEDS ORDERED: Cepastat Lozenges 1 LOZ PO PRN (10:38)
[2020-03-08] MEDS: Lidocaine 5% Patch TD SCH (12:01)
[2020-03-08] MEDS: traMADol HCl 50 MG TAB PO PRN (15:12)
--- NOTE | 2020-03-08 15:13 | PDOC.GSPN ---
Surgery Progress Note: Subj - Subjective Patient reports: no new complaints (Post op day 2 C-6- T-1 ACDF with plating acr oss C6-C7.), pain well controlled, tolerating a regular diet Surgery Progress Note: Obj - Vital signs Vital signs: Vital Signs - Most Recent Temp Pulse Resp BP Pulse Ox 97.5 F L 66 14 114/65 91 L 03/08/20 11:28 03/08/20 11:28 03/08/20 11:28 03/08/20 11:28 03/08/20 11:28 - Physical Exam General: no distress Neck: trachea midline, other (Collar inplace) Cardiovascular: regular rate and rhythm Respiratory: clear to auscultation Abdomen: nondistended Musculoskeletal: other (BRANDT, LUE decreased ROM due to arthritis) Surgery Progress Note: Results - Labs Result Diagrams: 03/08/20 05:12 03/08/20 05:11 Lab results: Laboratory Results - last 12 hr 03/08/20 03/08/20 03/08/20 05:11 05:12 05:27 WBC 8.0 RBC 3.93 L Hgb 12.3 Hct 37.3 MCV 94.8 MCH 31.4 H MCHC 33.1 RDW 12.2 Plt Count 267 MPV 7.4 Neutrophils % 71.6 Lymphocytes % 20.6 L Monocytes % 6.6 Eosinophils % 0.9 Basophils % 0.3 Neutrophils # 5.8 Lymphocytes # 1.7 Monocytes # 0.5 Eosinophils # 0.1 Basophils # 0.0 Sodium 136 Potassium 4.6 Chloride 104 Carbon Dioxide 23 Anion Gap 14 BUN 18 Creatinine 0.70 Estimated GFR (MDRD) 79 Glucose 79 L POC Glucose 84 Calcium 7.8 Phosphorus 2.7 Magnesium 2.1 03/08/20 11:30 WBC RBC Hgb Hct MCV MCH MCHC RDW Plt Count MPV Neutrophils % Lymphocytes % Monocytes % Eosinophils % Basophils % Neutrophils # Lymphocytes # Monocytes # Eosinophils # Basophils # Sodium Potassium Chloride Carbon Dioxide Anion Gap BUN Creatinine Estimated GFR (MDRD) Glucose POC Glucose 104 H Calcium Phosphorus Magnesium Surgery Progress Note: A/P - Problem (1) Accident due to mechanical fall without injury Current Visit: Yes Code(s): W19.XXXA - UNSPECIFIED FALL, INITIAL ENCOUNTER Status: Acute (2) Fall from ground level Current Visit: Yes Code(s): W18.30XA - FALL ON SAME LEVEL, UNSPECIFIED, INITIAL ENCOUNTER Status: Acute (3) C6-C7 unilateral jumped facet Current Visit: Yes Code(s): S13.171A - DISLOCATION OF C6/C7 CERVICAL VERTEBRAE, INITIAL ENCOUNTER Status: Chronic Qualifiers: Encounter type: subsequent encounter Qualified Code(s): S13.171D - Dislocation of C6/C7 cervical vertebrae, subsequent encounter (4) Subdural hem w/o coma Current Visit: Yes Code(s): S06.5X0A - TRAUM SUBDR HEM W/O LOSS OF CONSCIOUSNESS, INIT Status: Acute Assessment & Plan - Assessment Patient Problems: Problem List Problem Status Onset Accident due to mechanical fall without injury Acute Fall from ground level Acute Subdural hem w/o coma Acute C6-C7 unilateral jumped facet Chronic Hypotension Acute NSTEMI (non-ST elevated myocardial infarction) Acute Type 2 acute myocardial infarction Acute Diabetes mellitus type 2 in obese Chronic Hypertension Chronic - Plan Plan/Continue to require rehab level of care: Continue Supportive care and pain regimen. Continue PT/OT. Replace el ectrolytes.
[2020-03-08] MEDS: Enoxaparin Sodium 40 MG/0.4 ML SYRINGE SC SCH (20:37)
[2020-03-08] MEDS: Lidocaine Patch Removal 1 EACH TOP SCH (23:55)
--- NOTE | 2020-03-09 01:27 | PRG ---
DATE OF SERVICE: 03/08/2020 SUBJECTIVE: The patient was seen this evening during rounds. She was sitting up at edge of the bed. The nurse was in the room giving her medications. The patient was supporting herself independently and had no complaints. OBJECTIVE: VITAL SIGNS: Temperature 98.5, pulse 66, respirations 20, oxygen saturation 97% on 3 L nasal cannula, blood pressure 105/65. ASSESSMENT: 1. Status post mechanical fall from standing. 2. C6 and C7 fracture with joint facet malalignment. 3. Subacute, subdural, and subarachnoid hemorrhages, stable. 4. History of hypertension, diverticulitis, and diabetes. PLAN: Continue current diet and pain regimen. Continue physical and occupational therapy. Continue supportive care. The patient started on DVT prophylaxis today after approval by Neurosurgery Team. The patient is pending discharge to acute rehab facility. She is ready for discharge at this time. Job ID: [id number]
[2020-03-09 05:22] LABS: #Eosinphils 0.1 thou/uL (0.0-0.7); #Lymphocytes 1.5 thou/uL (1.20-3.40); #Monocytes 0.6 thou/uL (0.11-0.59); #Neutrophils 4.5 thou/uL (1.40-6.50); %Basophils 0.4 % (0.0-1.0); %Eosinophils 1.4 % (0.0-10.0); %Monocytes 8.5 % (0.0-10.0); %Neutrophils 66.7 % (42.0-75.0); Hemoglobin 12.9 g/dL (12.0-16.0); Mean Corpuscular HGB CONC 31.3 g/dL (32.0-36.0); Mean Corpuscular Hemoglobin 29.7 pg (27.0-31.0); Mean Corpuscular Volume 94.9 fL (78.0-98.0); Mean Platelet Volume 7.3 fL (7.4-10.4); Platelet Count 287 thou/uL (130-400); RBC Distribution Width 12.2 % (11.5-14.5); Red Blood Cell (RBC) Count 4.34 mill/uL (4.20-5.40); White Blood Cell (WBC) Count 6.7 thou/uL (4.8-10.8)
[2020-03-09] MEDS: Acetaminophen 500 MG TAB PO SCH ×3 (05:44→18:01)
[2020-03-09] MEDS: traMADol HCl 50 MG TAB PO SCH ×3 (05:45→18:02)
[2020-03-09] MEDS: Triamterene/Hydrochlorothiazide 37.5 mg/25 mg Tablet PO SCH ×2 (09:38→11:44)
[2020-03-09] MEDS: Gabapentin 100 MG CAP PO SCH ×3 (09:41→20:36)
[2020-03-09] MEDS: Senokot S 8.6-50 MG TAB PO SCH ×2 (09:42→20:37)
[2020-03-09] MEDS: Polyethylene Glycol 3350 17 GM Packet PO SCH (09:42)
[2020-03-09] MEDS: Lidocaine 5% Patch TD SCH (11:40)
--- NOTE | 2020-03-09 13:58 | PRG ---
DATE OF SERVICE: 03/09/2020 SUBJECTIVE: An 84-year-old female, postop day #3, C6-T1 ACDF. She was sitting up in the chair next to the bed. She states she is just having a little bit of nerve pain in her right arm and some arthritis in her left arm. Tolerating diet. No bowel movement yet. OBJECTIVE: VITAL SIGNS: Blood pressure 123/79, heart rate 62, temperature 97.9, respiratory rate 18, oxygen saturation 97% on room air. GENERAL: Awake, alert, and oriented. GCS is 15. HEENT: Unremarkable. Collar in place as well. HEART: Regular rate and rhythm. LUNGS: Unlabored breathing. Good inspiratory and expiratory effort. ABDOMEN: Soft and nondistended. EXTREMITIES: Moves all 4 limbs, neurovascularly intact. LABORATORY DATA: CBC; white count 6.7, hemoglobin 12.9, hematocrit 41.2, platelets 287. ASSESSMENT: 1. Postoperative day #3, status post anterior cervical diskectomy and fusion, C6-T1. 2. Subacute small subdural and subarachnoid hemorrhages, stable. 3. History of hypertension, diverticulitis, and diabetes, diet controlled. PLAN: The patient was seen and evaluated with Dr. Cisneros on morning rounds. Continue supportive care and pain regimen. The patient is tolerating diet. Case Management is working on placement at [facility]. The patient is very motivated to continue rehab with the goal of getting back to her previous level of independence. Job ID: [id number]
[2020-03-09] MEDS: Famotidine/PF 20 mg/2ml Vial SLOW IVP SCH (15:10)
[2020-03-09] MEDS: Enoxaparin Sodium 40 MG/0.4 ML SYRINGE SC SCH (20:36)
[2020-03-10] MEDS: Lidocaine Patch Removal 1 EACH TOP SCH (00:41)
[2020-03-10] MEDS: Acetaminophen 500 MG TAB PO SCH ×4 (00:44→18:13)
[2020-03-10] MEDS: traMADol HCl 50 MG TAB PO SCH ×5 (00:44→18:14)
[2020-03-10] MEDS: Triamterene/Hydrochlorothiazide 37.5 mg/25 mg Tablet PO SCH (07:32)
[2020-03-10] MEDS: Gabapentin 100 MG CAP PO SCH ×3 (07:32→20:50)
[2020-03-10] MEDS: traMADol HCl 50 MG TAB PO PRN ×2 (07:33→13:38)
[2020-03-10] MEDS: Polyethylene Glycol 3350 17 GM Packet PO SCH ×2 (09:56→16:47)
[2020-03-10] MEDS: Senokot S 8.6-50 MG TAB PO SCH ×2 (09:56→20:49)
[2020-03-10] MEDS: Lidocaine 5% Patch TD SCH ×2 (11:20→11:25)
--- NOTE | 2020-03-10 11:24 | PRG ---
DATE OF SERVICE: SUBJECTIVE: An 84-year-old female, postop day 4, C6-T1 ACDF. The patient was lying in bed, resting comfortably. She states that she has been able to work with physical therapy and feels she is doing very well. Tolerating diet, and pain is controlled. OBJECTIVE: VITAL SIGNS: Blood pressure 131/53, pulse 65, temp 97.8, respiratory rate 18, oxygen saturation 93% on room air. GENERAL: Awake, alert, and oriented. GCS 15. HEENT: Unremarkable. Collar in place. HEART: Regular rate and rhythm. LUNGS: Unlabored breathing. Good inspiratory and expiratory effort. ABDOMEN: Soft, nondistended. EXTREMITIES: Moves all 4 limbs. Lower extremity muscle strength 5/5, neurovascularly intact. LABORATORY DATA: No new labs to review. ASSESSMENT: 1. Postop day 4, status post ACDF C6-T1. 2. Subacute small subdural and subarachnoid hemorrhages, stable. 3. History of hypertension, diverticulitis, diabetes that is diet controlled. PLAN: This patient was seen and evaluated with Dr. Cisneros on the morning rounds. Continue supportive care. The patient is tolerating diet. Plan is for placement at [facility] pending insurance approval. Job ID: [id number]
[2020-03-10] MEDS: Enoxaparin Sodium 40 MG/0.4 ML SYRINGE SC SCH (20:51)
[2020-03-11] MEDS: Acetaminophen 500 MG TAB PO SCH ×5 (00:06→23:43)
[2020-03-11] MEDS: traMADol HCl 50 MG TAB PO SCH ×5 (00:07→23:43)
[2020-03-11] MEDS: Lidocaine Patch Removal 1 EACH TOP SCH (00:15)
[2020-03-11] MEDS: Gabapentin 100 MG CAP PO SCH ×3 (08:32→20:33)
[2020-03-11] MEDS: Senokot S 8.6-50 MG TAB PO SCH ×2 (08:33→20:38)
[2020-03-11] MEDS: Polyethylene Glycol 3350 17 GM Packet PO SCH (08:33)
[2020-03-11] MEDS: Triamterene/Hydrochlorothiazide 37.5 mg/25 mg Tablet PO SCH (08:33)
[2020-03-11] MEDS: Lidocaine 5% Patch TD SCH (11:10)
--- NOTE | 2020-03-11 11:46 | PRG ---
DATE OF SERVICE: 03/11/2020 SUBJECTIVE: An 84-year-old female, postop day 5, C6 through T1 ACDF. The patient is lying in bed, stating that she was having increased pain today. She was able to work with physical therapy. Tolerating diet. OBJECTIVE: VITAL SIGNS: Blood pressure 145/76, pulse 70, temperature 98.4, respiratory rate 16, oxygen saturation 94% on room air. GENERAL: Awake, alert, oriented, in no acute distress. HEENT: Unremarkable. NECK: Cervical collar in place. HEART: Regular rate and rhythm. LUNGS: Nonlabored breathing. Good inspiratory and expiratory effort. ABDOMEN: Soft, nondistended. EXTREMITIES: Moves all four limbs. Neurovascularly intact. LABORATORY DATA: No new labs to review. ASSESSMENT: 1. Postop day 5, status post anterior cervical discectomy and fusion C6 through T1. 2. Subacute subdural and subarachnoid hemorrhages, stable. 3. History of hypertension, diverticulitis, diabetes that is diet controlled. PLAN: Continue supportive care. We will evaluate the patient's pain medication regimen and adjust as needed to allow for pain control, so the patient can continue working with PT and OT. Plan is for the patient to go to [facility]. Insurance has approved pending bed availability. This patient was seen and evaluated with Dr. Cisneros on morning rounds. Job ID: [id number]
[2020-03-11] MEDS: Enoxaparin Sodium 40 MG/0.4 ML SYRINGE SC SCH (20:35)
[2020-03-11] MEDS: Cyclobenzaprine 10 MG TAB PO PRN (21:41)
[2020-03-12] MEDS: Lidocaine Patch Removal 1 EACH TOP SCH (02:44)
[2020-03-12] MEDS: traMADol HCl 50 MG TAB PO SCH ×2 (06:17→12:13)
[2020-03-12] MEDS: Acetaminophen 500 MG TAB PO SCH ×2 (06:19→12:12)
[2020-03-12] MEDS: Triamterene/Hydrochlorothiazide 37.5 mg/25 mg Tablet PO SCH (09:25)
[2020-03-12] MEDS: Gabapentin 100 MG CAP PO SCH ×2 (09:26→16:17)
[2020-03-12] MEDS: Senokot S 8.6-50 MG TAB PO SCH (09:28)
[2020-03-12] MEDS: Polyethylene Glycol 3350 17 GM Packet PO SCH (09:39)
--- NOTE | 2020-03-12 12:50 | DIS ---
DATE OF ADMISSION: 03/06/2020 DATE OF DISCHARGE: 03/12/2020 RESIDENT: Thelma Ibrahim, PG-1 ADMITTING ATTENDING: Lizandro Alaniz MD DISCHARGE ATTENDING: Vega Cisneros DO CONSULTS: Neurosurgery, Dr. Estevez. PROCEDURES: Reduction of C6-7 jumped facets with anterior cervical diskectomy at C6-C7 and C7-T1, anterior cervical plating, C6-C7 on 03/06/2020. PRIMARY DIAGNOSIS: Mechanical fall. SECONDARY DIAGNOSES: 1. Cervical spine injury, C6-C7 fracture and anterolisthesis. 2. Postop from anterior cervical diskectomy and fusion C6 through T1. 3. Subacute, subdural, and subarachnoid hemorrhages, stable. 4. Hypertension. 5. History of diverticulitis. 6. History of diabetes, that is diet controlled. DISCHARGE MEDICATIONS: 1. Tylenol 1000 mg p.o. q.6 hours. 2. Artificial Tears. 3. Flexeril 5 mg t.i.d. p.r.n. 4. Lovenox 40 mg subcu daily. 5. Gabapentin 200 mg p.o. t.i.d. p.r.n. 6. Lidocaine patch 1 patch daily as needed. 7. Zofran 4 mg as needed. 8. MiraLAX 17 g daily. 9. Senokot 2 tabs p.o. b.i.d. 10. Tramadol 100 mg p.o. q.6 hours. 11. Triamterene/hydrochlorothiazide 1 tablet daily. Discontinued medication: Aspirin. HISTORY OF PRESENT ILLNESS: 84-year-old female was sitting on a barstool and fell off and landed backwards. She denies loss of consciousness. She had a previous fall on 02/27/2020, in which she sustained a small subarachnoid hemorrhage. She was hospitalized during that time, but refused rehab. Upon evaluation in the ED, patient was awake, alert, and oriented. GCS 15 and just had mild tingling sensation in the right upper extremity. On imaging, brain CT showed small subacute hemorrhage along the left tentorium. Decrease in size of hemorrhage along the left calvarium with residual left subdural collection and/or dural thickening related to prior subdural hemorrhage. Cervical spine CT showed T7 vertebral body fracture, jumped facet at C6-C7, moderate central canal stenosis, severe right neural foraminal narrowing at C6-C7 secondary to fracture fragment. Neurosurgery was consulted from the ED and planned to take the patient emergently to the OR. Procedure performed as above. Patient tolerated procedure well. After the surgery, patient was able to tolerate diet. She was able to work with Physical and Occupational Therapy. It was recommended that she would be most benefited from inpatient rehab. Her pain was controlled. She was looking forward to going to rehab to gain back her mobility in order to return to her normal level of independence. DISPOSITION: Stable. DISCHARGE INSTRUCTIONS: 1. Location: [facility]. 2. Diet: Regular diet. 3. Activity: As directed by Physical and Occupational Therapy. 4. Followup: With Dr. Estevez, Neurosurgery and Dr. Patton, her primary care provider. Job ID: [id number]
[2020-03-12 13:02] VITALS: BP 127/59; TEMP 98.1
[2020-03-12] MEDS: Lidocaine 5% Patch TD SCH (14:30)
--- NOTE | 2020-04-01 12:46 | EKG ---
Test Reason : Blood Pressure : / mmHG Vent. Rate : 075 BPM Atrial Rate : 075 BPM P-R Int : 190 ms QRS Dur : 116 ms QT Int : 440 ms P-R-T Axes : 064 -51 082 degrees QTc Int : 491 ms Normal sinus rhythm Left anterior fascicular block Left ventricular hypertrophy with QRS widening and repolarization abnormality Anteroseptal infarct , age undetermined Abnormal ECG Confirmed by ROSSANA Álvarez, JENNY ([id number]), offline editor VIKTORIYA PETERSEN ([id number]) on 04/01/2020 12:46:21 PM Referred By: Confirmed By:JENNY TRACY M.D.
== END 2020-03-12 15:58 | DRG 471 ==
LOC: ERS 14:15 → SDC/OP 18:35 → SURG A 18:36
PROVIDERS: ADMIT Surgery; ATTEND Surgery
PROC: 0RG10A0 Fusion of Cervical Vertebral Joint with Interbody Fusion Device, Anterior Approach, Anterior Column, Open Approach (ICD-10-PCS; principal; 2020-03-06)
PROC: 0RB30ZZ Excision of Cervical Vertebral Disc, Open Approach (ICD-10-PCS; 2020-03-06)
PROC: 0RB50ZZ Excision of Cervicothoracic Vertebral Disc, Open Approach (ICD-10-PCS; 2020-03-06)
PROC: 0RG40A0 Fusion of Cervicothoracic Vertebral Joint with Interbody Fusion Device, Anterior Approach, Anterior Column, Open Approach (ICD-10-PCS; 2020-03-06)
DX: S12.530A Unspecified traumatic displaced spondylolisthesis of sixth cervical vertebra, initial encounter for closed fracture (principal); S06.6X0A Traumatic subarachnoid hemorrhage without loss of consciousness, initial encounter; S06.5X0A Traumatic subdural hemorrhage without loss of consciousness, initial encounter; Z20.822 Contact with and (suspected) exposure to COVID-19; I10 Essential (primary) hypertension; S12.630A Unspecified traumatic displaced spondylolisthesis of seventh cervical vertebra, initial encounter for closed fracture; E11.9 Type 2 diabetes mellitus without complications; W07.XXXA Fall from chair, initial encounter; M48.02 Spinal stenosis, cervical region; M19.90 Unspecified osteoarthritis, unspecified site; M50.223 Other cervical disc displacement at C6-C7 level; S12.600A Unspecified displaced fracture of seventh cervical vertebra, initial encounter for closed fracture; S01.552A Open bite of oral cavity, initial encounter; Z28.21 Immunization not carried out because of patient refusal; Z91.81 History of falling; Z90.49 Acquired absence of other specified parts of digestive tract; Z98.42 Cataract extraction status, left eye; Z98.41 Cataract extraction status, right eye; Z88.2 Allergy status to sulfonamides; Z79.899 Other long term (current) drug therapy; Z79.82 Long term (current) use of aspirin; Z87.19 Personal history of other diseases of the digestive system
CPT/HCPCS: 36415; 36416; 70450; 71045; 72125; 80048; 80053; 81001; 83735; 84100; 84484; 85025; 85610; 85730; 93005; 96374; 96375; C1713; C1776; G0390; J0690; J1100; J1650; J2270; J2405; J2704; J3010; J3475; J3480; J7050; L0174; Q0162; S0028; U0002

== ENCOUNTER 2020-03-31 10:52 | Outpatient (CLI) | payer MEDICARE ==
--- NOTE | 2020-03-31 13:18 | RAD ---
CERVICAL SPINE 4 VIEWS: COMPARISON: Comparison is made to the exam of 08/28/2018. FINDINGS: Postoperative changes are now noted with anterior late and screws transfixing C6-7. Interbody implan ts at C6-7 and C7-T1. There is anterior wedging and loss of vertebral body height at the C4, C5, and C6 levels which appear s stable from prior exam. Loss of height of C7 has progressed since the prior exam. Degenerative osteophytes are noted along with facet hypertrophy. Posterior alignment is preserved with spondylosis seen at all levels. IMPRESSION: Postoperative and degenerative changes of the cervical spine as described. POS: AGW
== END 2020-03-31 10:53 | disposition home or self-care (01) ==
LOC: TBSIIMAG 10:52
DX: S12.9XXA Fracture of neck, unspecified, initial encounter (principal); M47.812 Spondylosis without myelopathy or radiculopathy, cervical region; Z98.1 Arthrodesis status
CPT/HCPCS: 72040

== ENCOUNTER 2020-04-14 11:29 | Outpatient (CLI) | payer MEDICARE ==
--- NOTE | 2020-04-14 13:59 | MRI ---
MRI OF LEFT SHOULDER PERFORMED WITHOUT CONTRAST ENHANCEMENT: 04/14/20 HISTORY: Left shoulder pain and weakness. There is considerable motion artifact on this exam degrading detail. There is marked arthrosis of the AC joint. There is a full thickness essentially complete supraspinatus tendon tear. There is differential retra ction of the fibers. On the bursal side, the bursal side of the fibers are retracted by approximately 2.6 cm with the undersurface articular sided fibers are retracted by approximately 3.4 cm. Humeral h ead is high riding abutting the undersurface of the acromion associated with these changes. The infra spinatus tendon appears intact. There are tendinopathy changes of the superior fibers of the subscapularis tendon. There is an inters titial tear with the biceps tendon being subluxed into the substance of the subscapularis tendon asso ciated with the tendinopathy change. It remains slightly subluxed in position, not lying truly within the bicipital groove. Labrum is not well assessed due to the extension motion artifact. The posterior inferior labrum is tr uncated. Moderate atrophy of the subscapularis muscle and also moderate atrophy to the supraspinatus muscle. M ild changes are seen of the superior aspect of the infraspinatus. IMPRESSION: Complete full thickness supraspinatus tendon tear as described above. Also a partial interstitial tea r of the superior fibers of the subscapularis tendon with subluxation of the biceps tendon into the s ubstance of the tendon. Moderately severe atrophy of the subscapularis muscle and also some moderate atrophy of the supraspinatus muscle are noted. POS: OFF
== END 2020-04-14 11:30 | disposition home or self-care (01) ==
LOC: SCSMRI 11:29
PROVIDERS: ATTEND Neurological Surgery
DX: M25.512 Pain in left shoulder (principal); M75.122 Complete rotator cuff tear or rupture of left shoulder, not specified as traumatic

== ENCOUNTER 2020-04-28 12:41 | Outpatient (CLI) | payer MEDICARE | END 2020-04-28 12:42 | disposition home or self-care (01) | LOC: BICRAD 12:41 | PROVIDERS: ATTEND Neurological Surgery | DX: S12.9XXA Fracture of neck, unspecified, initial encounter (principal); Z98.890 Other specified postprocedural states | CPT/HCPCS: 72040 ==

== ENCOUNTER 2020-05-18 09:38 | Outpatient (CLI) | payer MEDICARE | END 2020-05-18 09:39 | disposition home or self-care (01) | LOC: TBSIIMAG 09:38 | PROVIDERS: ATTEND Neurological Surgery | DX: S12.9XXA Fracture of neck, unspecified, initial encounter (principal); Z98.1 Arthrodesis status; Z98.890 Other specified postprocedural states | CPT/HCPCS: 72125 ==

== ENCOUNTER 2020-06-01 10:27 | Outpatient (CLI) | payer MEDICARE | END 2020-06-01 10:28 | disposition home or self-care (01) | LOC: BICRAD 10:27 | PROVIDERS: ATTEND Neurological Surgery | DX: S12.9XXA Fracture of neck, unspecified, initial encounter (principal); M47.812 Spondylosis without myelopathy or radiculopathy, cervical region; M43.13 Spondylolisthesis, cervicothoracic region; Z98.890 Other specified postprocedural states | CPT/HCPCS: 36415; 72040; 83540; 83550 ==

== ENCOUNTER 2020-10-07 15:55 | Outpatient (CLI) | payer MEDICARE | END 2020-10-07 15:56 | disposition home or self-care (01) | LOC: BICRAD 15:55 | PROVIDERS: ATTEND Student in an Organized Health Care Education/Training Program | DX: M25.512 Pain in left shoulder (principal); M19.012 Primary osteoarthritis, left shoulder ==

== ENCOUNTER 2020-10-09 15:19 | Outpatient (CLI) | payer MEDICARE | END 2020-10-09 15:20 | disposition home or self-care (01) | LOC: BICCT 15:19 | PROVIDERS: ATTEND Otolaryngology Plastic Surgery within the Head & Neck | DX: J32.9 Chronic sinusitis, unspecified (principal); R51.9 Headache, unspecified ==

== ENCOUNTER 2020-12-15 15:00 | Outpatient (CLI) | payer MEDICARE | END 2020-12-15 15:01 | disposition home or self-care (01) | LOC: BICMAMMO 15:00 | PROVIDERS: ATTEND Family Medicine | DX: Z13.820 Encounter for screening for osteoporosis (principal); E28.39 Other primary ovarian failure; M85.851 Other specified disorders of bone density and structure, right thigh; Z78.0 Asymptomatic menopausal state | CPT/HCPCS: 77080 ==

== ENCOUNTER 2021-01-05 09:29 | Outpatient (CLI) | payer MEDICARE | END 2021-01-05 09:30 | disposition home or self-care (01) | LOC: BICCT 09:29 | PROVIDERS: ATTEND Urology | DX: N39.41 Urge incontinence (principal); K57.30 Diverticulosis of large intestine without perforation or abscess without bleeding; D25.9 Leiomyoma of uterus, unspecified; K42.9 Umbilical hernia without obstruction or gangrene | CPT/HCPCS: 74176 ==

== ENCOUNTER 2021-03-02 10:55 | Outpatient (CLI) | payer MEDICARE | END 2021-03-02 10:56 | disposition home or self-care (01) | LOC: BICULT 10:55 | PROVIDERS: ATTEND Otolaryngology Plastic Surgery within the Head & Neck | DX: E04.1 Nontoxic single thyroid nodule (principal) | CPT/HCPCS: 76536 ==

== ENCOUNTER 2021-08-07 15:35 | Emergency (ER) | payer MEDICARE ==
[2021-08-07 16:36] LABS: #Basophils 0.1 thou/uL (0.0-0.2); #Eosinphils 0.1 thou/uL (0.0-0.7); #Monocytes 0.4 thou/uL (0.11-0.59); #Neutrophils 5.8 thou/uL (1.40-6.50); %Lymphocytes 13.7 % (21.0-51.0); %Monocytes 5.9 % (0.0-10.0); %Neutrophils 77.4 % (42.0-75.0); Hemoglobin 15.9 g/dL (12.0-16.0); Mean Corpuscular HGB CONC 33.1 g/dL (32.0-36.0); Mean Corpuscular Hemoglobin 32.4 pg (27.0-31.0); Mean Corpuscular Volume 97.9 fL (78.0-98.0); Mean Platelet Volume 7.3 fL (7.4-10.4); Platelet Count 304 thou/uL (130-400); RBC Distribution Width 12.1 % (11.5-14.5); White Blood Cell (WBC) Count 7.5 thou/uL (4.8-10.8)
[2021-08-07 17:03] LABS: ALT (SGPT) 26 U/L (8-55); AST (SGOT) 29 U/L (5-34); Albumin 4.2 g/dL (3.4-4.8); Alkaline Phosphatase 94 U/L (40-110); Anion Gap 16 mmol/L (10-20); BUN (Urea Nitrogen) 18 mg/dL (9.8-20.1); Bilirubin, Total 0.5 mg/dL (0.2-1.2); Calc. Creatinine Clearance 0 mL/min (70-130); Calcium 9.5 mg/dL (7.8-10.44); Carbon Dioxide 24 mmol/L (23-31); Chloride 103 mmol/L (98-107); Globulin 3.4 g/dL (2.4-3.5); Glucose 114 mg/dL (83-110); Potassium 3.8 mmol/L (3.5-5.1); Protein, Total 7.6 g/dL (5.8-8.1); Sodium 139 mmol/L (136-145)
[2021-08-07] MEDS ORDERED: Acetaminophen 500 MG TAB ONE (19:24)
== END 2021-08-07 19:54 | disposition home or self-care (01) ==
LOC: ERS 15:35
DX: I82.412 Acute embolism and thrombosis of left femoral vein (principal); M19.90 Unspecified osteoarthritis, unspecified site; E11.9 Type 2 diabetes mellitus without complications; I10 Essential (primary) hypertension; Z79.899 Other long term (current) drug therapy; Z79.82 Long term (current) use of aspirin
CPT/HCPCS: 36415; 80053; 85025; 93923